=== PATIENT | female | born 1940 | race Caucasian/White ===

== ENCOUNTER 2017-12-17 16:24 | Emergency (ER) | payer MEDICARE, SELFPAY ==
[2017-12-17 16:25] VITALS: BP 131/58; PULSE 97; RESP 18; TEMP 37.1; O2SAT 94; BMI 25.4
--- NOTE | 2017-12-17 16:56 | ED.VISSUMM ---
- ER Visit Summary Date of Service: 12/17/17 Chief Complaint: I am sick History of Present Illness: The patient is a 77 F who states that she is sick. When asked her to explain she states that she feels shaky and has wounds on her right arm. Her left hip is also sore. Her hip was replaced in June. She states it has been sore ever since then. She has chronic wounds on the right arm. Denies any drainage. She states that I am the fifth physician to evaluate these. She feels shaky intermittently. She did not take her temperature at home. She denies any chest pain, shortness of breath. Physical Examination: Vital signs reviewed. HEENT exam unremarkable. Heart is regular rate and rhythm without murmurs. Lungs are clear to auscultation. Abdomen is soft and nontender. Extremities tenderness to the left hip. She does have painful range of motion. Skin exam reveals chronic wounds on the right arm. Not infected. She has 2+ radial pulses. Her hand is warm. Neurologic exam normal. She does shake intermittently but is extinguishable and distractible Test Results: Hemoglobin 10.1, potassium 3.3, glucose 159. Left hip x-ray interpreted by myself reveals no acute findings. Prosthesis is intact and normal Emergency Department Course and Treatment: Patient has a chronic skin wounds on her arm. None are infected. I do not feel any further testing is needed for this. She will continue using triple antibiotic cream. For the hip pain she will continue to use NSAIDs and she will need to follow-up with her PCP Treatment Plan: [] Disposition: Discharge Impression: Left hip pain, chronic skin wounds This note was generated with [employer] dictation software. It may contain incorrect words, spelling, and punctuation that were not noted in review of the chart prior to signing ED Disposition - Plan for ED Patient: Chief Complaint: Other, Pain/Inj Referrals: NOT,DEFINED [NON-STAFF] -
[2017-12-17 17:04] LABS: Absolute Lymphocyte Count 1.82 X10^3/ul (0.83-4.51); Absolute Neutrophil Count 5.2 X10^3/uL (2.0-7.7); Basophil# 0.06 X10^3/uL; Basophil% 0.8 % (0-1); Eosinophil# 0.17 X10^3/uL; Eosinophils% 2.2 % (0-5); Hematocrit 31.7 % (37-47); Hemoglobin 10.1 g/dl (12.0-15.0); Lymphocyte # 1.82 X10^3/ul (4.0); Lymphocyte % 23.3 % (19-41); Mean Corp Hgb Conc 31.9 g/gl (32-36); Mean Corpuscular Hgb 27.4 pg (27.0-32.0); Mean Corpuscular Volume 85.9 fL (81-99); Mean Platelet Vol. 8.8 fl (6.2-12.0); Monocyte# 0.53 X10^3/uL; Monocyte% 6.8 % (0-10); Neutrophil % 66.6 % (47-70); POSITIVE COUNT NO; POSITIVE DIFFERENTIAL NO; POSITIVE MORPHOLOGY NO; Platelet Count 322 K/mm3 (150-450); RBC Distribution Width SD 45.3 fl (35.1-43.9); Red Blood Count 3.69 M/mm3 (4.2-5.4); White Blood Count 7.8 K/mm3 (4.4-11.0)
[2017-12-17 17:14] LABS: Anion Gap 10 (5-15); BUN 11 mg/dL (7-18); BUN/Creat Ratio 10.3 RATIO (10-20); Calcium,Total 8.9 mg/dL (8.5-10.1); Chloride 103 mmol/L (98-107); Creatinine, Serum 1.07 mg/dL (0.55-1.02); EST Glomerular Filtration Rate 53 mL/min (>60); Est Glom Filt Rate - Afr Amer 64 mL/min (>60); Estimated Creatinine Clearance 32.63 ml/min; Glucose 159 mg/dL (74-106); Potassium 3.3 mmol/L (3.5-5.1); Sodium Level 140 mmol/L (136-145)
--- NOTE | 2017-12-17 18:49 | ED.DEP ---
ED Disposition - Plan for ED Patient: Disposition: Home or Assisted Living Chief Complaint: Other, Pain/Inj Instructions: ED Sprain Hip Referrals: NOT,DEFINED [NON-STAFF] -
[2017-12-17 19:33] VITALS: BP 110/80; PULSE 74; RESP 20; O2SAT 98
--- NOTE | 2017-12-17 19:35 | ED.RN ---
PATIENT STATED TO THIS NURSE WHOM JUST CAME ON SHIFT THAT SHE DID NOT COME IN HERE FOR HER HIP SHE CAME IN FOR LESIONS ON HER ARM AND SHOULDER PAIN. I ASKED HER IF SHE WANTED THE DOCTOR TO COME BACK IN AND ADDRESS THESE ISSUES MORE AND SHE SAID NO I AM GOING HOME I WENT OUT AND ASKED DR CRESPO ABOUT THIS AND HE TOLD THIS NURSE THAT HE DID ADDRESS IT AND SHE IS TO PUT OTC ATB CREAM ON THE LESIONS AND F/U WITH HER DOCTOR THIS IS CHRONIC IN NATURE. PATIENT TOLD THIS NURSE THAT SHE DID NOT HAVE MONEY FOR DRSG SUPPLIES. THIS NURSE GAVE HER SOME BACITRACIN SAMPLES TO TAKE HOME AND I OFFERED TO GIVE HER SOME DRSG SUPPLIES AND SHE REFUSED. PATIENT DISCHARGED WITH PAPERWORK AND A TAXI WAS CALLED FOR HER.
== END 2017-12-17 19:39 | disposition home or self-care (01) ==
PROVIDERS: Emergency Provider Emergency Medicine
DX: M25.552 Pain in left hip (principal); S41.101A Unspecified open wound of right upper arm, initial encounter; R25.8 Other abnormal involuntary movements; X58.XXXA Exposure to other specified factors, initial encounter; Y93.9 Activity, unspecified; Y92.9 Unspecified place or not applicable
CPT/HCPCS: 73502; 80048; 85025; 99282

== ENCOUNTER 2018-02-05 05:54 | Observation (INO) | payer MEDICARE, SELFPAY ==
[2018-02-05 05:56] VITALS: BP 86/58; PULSE 91; RESP 16; TEMP 37.2; O2SAT 94; BMI 26.7
--- NOTE | 2018-02-05 06:02 | EKG12_ITS ---
Test Reason : FALL Blood Pressure : / mmHG Vent. Rate : 081 BPM Atrial Rate : 081 BPM P-R Int : 174 ms QRS Dur : 080 ms QT Int : 422 ms P-R-T Axes : 047 018 031 degrees QTc Int : 490 ms Poor data quality, interpretation may be adversely affected Normal sinus rhythm Possible Inferior infarct , age undetermined Nonspecific ST and T wave abnormality Abnormal ECG Confirmed by WEST VANCE, KEVIN ([id number]), magazine editor SUYAPA SHIELDS ([id number] on 02/08/2018 1:01:50 PM Referred By: GORDON Confirmed By:KEVIN DODSON MD
--- NOTE | 2018-02-05 06:19 | CT_ITS ---
STUDY: CT CERVICAL SPINE WITHOUT CONTRAST REASON FOR EXAM: Female, 77 years old. History of fall. RADIATION DOSAGE (If Supplied By Facility): CTDIvol = ( 18.13 ) mGy, DLP = ( 295.29 ) mGycm TECHNIQUE: High resolution transaxial imaging was performed without contrast material. Sagittal and coronal images were reconstructed. Individualized dose optimization techniques were used for this CT. COMPARISON: None FINDINGS: Normal craniovertebral junction. There are degenerative changes of the anterior atlantoaxial articulation. Normal odontoid process. Normal cervical lordosis. Normal vertebral bodies and posterior osseous elements. C2-3: Marked degree of disc space narrowing. Anterior spondylosis. Uncovertebral arthrosis and facet joint osteoarthropathy with hypertrophy worse on the left side. Bilateral neural foraminal stenosis. C3-4: Minimal anterior listhesis of C3 on C4 most likely secondary to the facet joint osteoarthritis and hypertrophy. Uncovertebral arthrosis. Mild bilateral neural foraminal stenosis. C4-5: Marked degree of disc space narrowing. Uncovertebral arthrosis. Bilateral neural foraminal stenosis worse on the left side. C5-6: Marked degree of disc space narrowing. Uncovertebral arthrosis. No significant stenosis is seen. C6-7: Marked degree of the space narrowing. Spondylosis. No significant stenosis is seen. Increased markings are seen at the lung apices suggestive of scarring. CT/Spine Cervical without Contras IMPRESSION: Multilevel degenerative changes, as described above. Electronically Signed: Ferny Beckett MD at 8:17 EDT Tel [phone], Service support ,
--- NOTE | 2018-02-05 06:19 | CT_ITS ---
STUDY: CT BRAIN WITHOUT CONTRAST REASON FOR EXAM: Female, 77 years old. History of fall. RADIATION DOSAGE (If Supplied By Facility): CTDIvol = ( 44.99 ) mGy, DLP = ( 745.49 ) mGycm TECHNIQUE: Transaxial CT imaging of the brain was performed without administration of intravenous contrast material. Individualized dose optimization techniques were used for this CT. COMPARISON: None. FINDINGS: Normal soft tissue structures. Normal calvarium. There is mild cerebral atrophy with widening of the extra-axial spaces and ventricular dilatation. Normal white matter tracts of the cerebral hemispheres. Normal basal ganglia and thalami. Normal brainstem. Normal cerebellum. There is no intracranial hemorrhage. There are no findings of an acute ischemic infarction. Normal visualized paranasal sinuses. CT/Brain/Head without Contrast IMPRESSION: Chronic involutional changes of the brain. Electronically Signed: Ferny Beckett MD at 8:12 EDT Tel [phone], Service support ,
--- NOTE | 2018-02-05 06:22 | ED.DCSUM_ITS ---
- ER Visit Summary Date of Service: 02/05/18 Chief Complaint: Fall History of Present Illness: The patient is a 77 F presenting after fall. Patient lives alone. She states she has been frequently falling at home. She states she fell 4 times yesterday and 2 times today. She states she does hit her head but has not passed out. She complains of right shoulder pain. She uses a walker at home. She has history of previous left hip replacement and right shoulder surgery. She does not recall what causes her to fall. Physical Examination: Blood pressure 86/58, temperature 99, heart rate 91, respiratory rate 16, pulse ox 95% on room air, Alert no acute distress. HEENT exam is unremarkable. Neck is mild diffuse tenderness with no step-off Lungs are clear and equal bilaterally. Heart is regular rate and rhythm. Abdomen is soft nontender nondistended. No guarding or rebound Extremities right shoulder anterior tenderness with active full range of motion Skin is warm and dry. Multiple excoriated lesions No focal neurologic deficit. Remainder of exam is unremarkable. Emergency Department Course and Treatment: Patient was given IV fluids. Repeat BP 110/53. EKG is sinus rate of 81 with no acute ischemic changes. CBC is normal except hemoglobin 10.9. Chemistries normal except for potassium 3.4, glucose 126, creatinine 1.24. Troponin is negative. Lactic acid normal. Urinalysis shows 50-100 white cells, 5-10 red blood cells. Urine culture is sent. She was given Rocephin IV. Chest x-ray shows vascular congestion. Right shoulder x-ray shows degenerative changes, pelvis x-ray shows no acute process. CT head and neck show chronic changes. Due to her frequent falling and UTI will discuss with the hospitalist for admission. Disposition: Admission Impression: Frequent falls, UTI This note was generated with [employer] dictation software. It may contain incorrect words, spelling, and punctuation that were not noted in review of the chart prior to signing ED Disposition - Plan for ED Patient: Chief Complaint: Fall Referrals: Roland Hall MD [Primary Care Provider] -
[2018-02-05] MEDS: 0.9% Normal Saline 1,000 ML 1000 ML IV (06:42)
[2018-02-05 07:12] LABS: Absolute Lymphocyte Count 2.79 X10^3/ul (0.83-4.51); Absolute Neutrophil Count 5.9 X10^3/uL (2.0-7.7); Basophil# 0.05 X10^3/uL; Basophil% 0.5 % (0-1); Eosinophil# 0.88 X10^3/uL; Eosinophils% 8.2 % (0-5); Hematocrit 34.6 % (37-47); Hemoglobin 10.9 g/dl (12.0-15.0); Lymphocyte # 2.79 X10^3/ul (4.0); Lymphocyte % 26.1 % (19-41); Mean Corp Hgb Conc 31.5 g/gl (32-36); Mean Corpuscular Hgb 26.7 pg (27.0-32.0); Mean Corpuscular Volume 84.8 fL (81-99); Mean Platelet Vol. 8.7 fl (6.2-12.0); Monocyte# 1.08 X10^3/uL; Monocyte% 10.1 % (0-10); Neutrophil # 5.89 X10^3/uL (2.7-7.7); Neutrophil % 54.9 % (47-70); Platelet Count 374 K/mm3 (150-450); RBC Distribution Width CV 15.9 % (11.6-14.6); RBC Distribution Width SD 49.2 fl (35.1-43.9); Red Blood Count 4.08 M/mm3 (4.2-5.4); White Blood Count 10.7 K/mm3 (4.4-11.0)
[2018-02-05 07:18] VITALS: BP 110/53; PULSE 66; RESP 14; O2SAT 98
[2018-02-05 07:19] LABS: POSITIVE COUNT NO; POSITIVE DIFFERENTIAL NO; POSITIVE MORPHOLOGY NO
[2018-02-05 07:20] LABS: Mucous, Urine 0 SEEN /hpf (<or=2+)
[2018-02-05 07:23] LABS: Color, Urine Yellow (Yellow); Glucose, Dipstick Normal (Normal); Ketone-Dipstick 5 mg/dl (Negative); Leukocyte Esterase-Dipstick 500 /ul (Negative); Nitrite-Dipstick Positive (Negative); Occult Blood-Urine 150 /ul (Negative); Protein-Dipstick 100 mg/dl (Negative); Specific Gravity, Urine 1.025 (1.002-1.030); Urine Clarity Turbid (Clear); Urine Urobilinogen 1 mg/dl (Normal)
[2018-02-05 07:24] LABS: Anion Gap 11 (5-15); BUN 17 mg/dL (7-18); BUN/Creat Ratio 13.7 RATIO (10-20); Calcium,Total 8.8 mg/dL (8.5-10.1); Chloride 101 mmol/L (98-107); Creatinine, Serum 1.24 mg/dL (0.55-1.02); EST Glomerular Filtration Rate 45 mL/min (>60); Est Glom Filt Rate - Afr Amer 54 mL/min (>60); Estimated Creatinine Clearance 29.58 ml/min; Glucose 126 mg/dL (74-106); Potassium 3.4 mmol/L (3.5-5.1); Sodium Level 138 mmol/L (136-145)
--- NOTE | 2018-02-05 07:25 | RAD_ITS ---
STUDY: X-RAY CHEST REASON FOR EXAM: Female, 77 years old. Trauma. TECHNIQUE: Single AP portable view of the chest. COMPARISON: Comparison is made with prior study dated July 01, 2015. FINDINGS: EKG electrodes are seen. Mild degree of vascular congestion. There is no demonstrated pleural abnormality. Normal size heart. Normal mediastinum and yakov. Normal visualized pulmonary arteries. There is atherosclerotic calcification of the aortic arch with tortuosity. Stable S-shaped scoliosis of the thoracic lumbar spine. Multiple healed right rib fractures. There is absence of the medial one half of the right clavicle. There is no demonstrated abnormality of the visualized soft tissue structures of the upper abdomen. RAD/Chest 1 View IMPRESSION: Vascular congestion. Electronically Signed: Ferny Beckett MD at 8:25 EDT Tel [phone], Service support ,
[2018-02-05 07:27] LABS: Lactic Acid 1.6 mmol/L (0.4-2.0)
--- NOTE | 2018-02-05 07:30 | RAD_ITS ---
STUDY: X-RAY - PELVIS REASON FOR EXAM: Female, 77 years old. Trauma. TECHNIQUE: One view of the pelvis was obtained. COMPARISON: None. FINDINGS: There is a non-specific bowel gas pattern. Normal visualized soft tissue structures. Normal bilateral iliac wings, sacroiliac joints and visualized sacrum. Normal visualized bilateral superior and inferior pubic rami. Normal pubic symphysis. Normal ischial tuberosities. Normal visualized right femoral head. Normal right acetabulum. Normal right hip joint. The patient is status post left total hip replacement. RAD/Pelvis 1 or 2 Views IMPRESSION: Status post left total hip replacement. No acute abnormality is seen. Electronically Signed: Ferny Beckett MD at 8:21 EDT Tel [phone], Service support ,
[2018-02-05 07:33] LABS: Urine Bilirubin Dipstick 1 mg/dL (Negative); White Blood Cells 50-100 SEEN /hpf (0-5)
[2018-02-05 07:34] LABS: Bacteria 2+ /hpf (None Seen); Red Blood Cells-Urine 5-10 SEEN /hpf (0-5); Squamous Epithelial Cells - UA 0-5 SEEN /hpf (5-10)
--- NOTE | 2018-02-05 07:35 | RAD_ITS ---
STUDY: X-RAY - RIGHT SHOULDER REASON FOR EXAM: Female, 77 years old. History of fall. TECHNIQUE: 4 view(s) of the shoulder. COMPARISON: None. FINDINGS: There is moderate degenerative arthrosis of the glenohumeral articulation. Normal acromioclavicular joint. Normal acromion. There has been resection of the medial half of the right clavicle. Normal humeral head and visualized proximal humerus. The soft tissue structures are unremarkable. Healed right rib fractures. RAD/Shoulder min 2 Views IMPRESSION: Degenerative changes. No fracture or dislocation is seen. Prior resection of the medial half of the right clavicle. Electronically Signed: Ferny Beckett MD at 8:20 EDT Tel [phone], Service support ,
[2018-02-05 09:00] VITALS: BP 98/57; PULSE 63; RESP 14; O2SAT 97
[2018-02-05] MEDS: Ceftriaxone 1 GM/50 ML BAG IV (09:00)
[2018-02-05 09:29] VITALS: BP 115/61; PULSE 70; RESP 18; O2SAT 98
[2018-02-05 10:26] VITALS: BMI 26.7
[2018-02-05 10:30] VITALS: BP 122/54; PULSE 66; RESP 16; TEMP 36.4; O2SAT 100
[2018-02-05 10:33] VITALS: BMI 26.7
[2018-02-05] MEDS: 0.9% Normal Saline 1,000 ML 125 ML IV (12:16)
[2018-02-05] MEDS: Heparin Injection (Vial) 5,000 UNIT/ML VIAL 5000 UNIT SC (12:18)
[2018-02-05] MEDS: Cefazolin 2 GM in 0.9% Normal Saline 100 ML IV (14:23)
--- NOTE | 2018-02-05 15:12 | HP.PCM_ITS ---
Addendum entered and electronically signed by SAGRARIO Templeton 02/05/18 15:28: Code Visit Addendum: hold sedatives for now to make sure blood pressure recovers, add back in if BP improved and patient develops anxiety. Original Note: <Reed Hardy - Last Filed: 02/05/18 15:27> Problem List (1) UTI (urinary tract infection) Status: Acute (2) Debility Status: Chronic (3) COPD (chronic obstructive pulmonary disease) Status: Chronic (4) Anxiety Status: Chronic History of Present Illness Date of Admission: 02/05/18 Chief Complaint: fall The patient is a 77 year old F with a Pmhx of anxiety, COPD, and osteoarthritis who presents to the ER with c/o fall. The patient lives alone and states that she is falling at home, has BL arm and shoulder pain, but also pain all over her body, and is very weak. She appears to have a UTI with + UA and does admit to urinary symptoms. The patient is not being forthcoming with her history, and has concerning behavior including answering questions different when asked multiple times, and stating that she cannot get up even though the aid had her get up with no problem. When the aid revealed this she became very angry, yelling at the aid, and then getting up on her own without difficulty. BP was low in the ER however this has improved with IV fluids. She denies fever or chills. No dizziness or LH. [] Past Medical History Past Medical History (Chronic Problems): Chronic Problems Debility (Chronic) COPD (chronic obstructive pulmonary disease) (Chronic) Anxiety (Chronic) Depression (Chronic) Degenerative joint disease (Chronic) COLD (chronic obstructive lung disease) (Chronic) Allergies acetaminophen [From Vicodin] Allergy (Verified 02/05/18 05:55) Unknown aspirin Allergy (Verified 02/05/18 05:55) Unknown gabapentin Allergy (Verified 02/05/18 06:29) Itching hydrocodone bitartrate [From Vicodin] Allergy (Verified 02/05/18 05:55) Unknown Sulfa (Sulfonamide Antibiotics) Allergy (Verified 02/05/18 05:55) Unknown fexofenadine [From Anna] Adverse Reaction (Verified 02/05/18 06:29) Itching sertraline [From Zoloft] Adverse Reaction (Verified 02/05/18 06:29) Diarrhea Home Medications: Ambulatory Orders Medication Instructions Recorded ALPRAZolam [Xanax] 0.5 mg PO DAILY 02/05/18 Albuterol Inhaler [Ventolin Hfa 1 - 2 puff INHALATION Q6H PRN PRN 02/05/18 (SP)] Budesonide/Formoterol 160/4.5 2 puff INHALATION BID 02/05/18 [Symbicort 160/4.5 Mcg Inhaler (SP)] Cholecalciferol (Vitamin D3) 50,000 unit PO QWEEK 02/05/18 [Vitamin D] Fluoxetine HCl 40 mg PO DAILY 02/05/18 Fluticasone 0.05% [Flonase Nasal 2 spray NASAL DAILY 02/05/18 [place]] Mupirocin [Bactroban] 1 applic TOPICAL TID 02/05/18 Ondansetron HCl [Zofran] 4 mg PO Q8H PRN 02/05/18 Oxybutynin Chloride [Ditropan Xl] 10 mg PO DAILY 02/05/18 Oxycodone HCl [Roxicodone] 15 mg PO 4X/DAY 02/05/18 Pantoprazole Sodium [Protonix] 20 mg PO DAILY 02/05/18 Temazepam [Restoril] 15 mg PO QHS 02/05/18 Tizanidine HCl [Zanaflex] 2 mg PO BID PRN 02/05/18 Zafirlukast [Accolate] 20 mg PO BID 02/05/18 hydrOXYzine pamoate capsule 50 mg PO TID PRN PRN 02/05/18 [Vistaril] Surgical History: herniorrhaphy Psychiatric History: Anxiety 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 Lives: Alone Smoking Status: Former smoker Tobacco Use: Non-smoker Alcohol: None Drugs: None - *Family History Paternal History Items: Cancer - throat Review of Systems Constitutional: Denies: Chills, Fever, Weight Change HEENT: Denies: Head Aches, Sinus Congestion, Sinus Drainage Cardiovascular: Denies: Chest Pain, Palpitations Respiratory: Denies: Cough, Shortness of breath at rest, Sputum production Gastrointestinal: Denies: Abdominal Pain, Nausea, Vomiting Genitourinary: Denies: Dysuria Musculoskeletal: Denies: Joint Pain, Joint Tenderness Skin: Denies: Rash, Wounds Neurological: Denies: Numbness, Tingling, Focal weakness Psychiatric: Denies: Anxiety, Depression, Homicidal Ideations, Suicidal Ideations Hematologic/ Lymphatic: Denies: Easy Bruising, Easy Bleeding VTE Information - Inpt Only VTE Present on Admission: No VTE Mechan Device Prophylaxis: None VTE Pharm Prophylaxis ordered?: Yes - Physical Exam General: Alert, Oriented x3, Cooperative, - - frail HEENT: Atraumatic, PERRLA, EOMI, Normocephalic Neck: Supple, No JVD, Negative Carotid Bruits Lungs: Rales - BL bases Cardiovascular: Regular rate, No murmurs Abdomen: Bowel Sounds Present, Soft, Tender - suprapubic, - - + BL CVA tenderness Extremities: No edema, Capillary Refill Less than 3 Seconds Skin: No rashes, No breakdown, - - chronic wounds on extremities from falls Musculoskeletal: No Tenderness to Palpation of Joints or Extremities Neurological: Cranial nerves II-XII grossly intact Psych/Mental Status: - - angry, Alert and oriented to time, place, person, mood and affect Vital Signs Temp Pulse Resp BP Pulse Ox 97.6 F L 66 16 122/54 H 100 02/05/18 10:30 02/05/18 10:30 02/05/18 10:30 02/05/18 10:30 02/05/18 10:30 Oxygen Delivery Method Room Air Weight: 141 lb 8.588 oz Body Mass Index (BMI) 26.7 Intake and Output for Last 24 Hours 02/03/18 02/04/18 02/05/18 23:59 23:59 23:59 Intake Total 125 / 125 Balance 125 / 125 Laboratory Tests Past 24 Hrs 02/05/18 02/05/18 02/05/18 06:40 06:40 06:40 WBC 10.7 RBC 4.08 L Hgb 10.9 L Hct 34.6 L MCV 84.8 MCH 26.7 L MCHC 31.5 L RDW 15.9 H RDW Differential 49.2 H Plt Count 374 MPV 8.7 Immature Gran % (Auto) 0.200 Neut % (Auto) 54.9 Lymph % (Auto) 26.1 [place] % (Auto) 10.1 H Eos % (Auto) 8.2 H Baso % (Auto) 0.5 Absolute Neuts (auto) 5.9 Absolute Lymphs (auto) 2.79 Total Counted Not Reportable Sodium 138 Potassium 3.4 L Chloride 101 Carbon Dioxide 26.0 Anion Gap 11 BUN 17 Creatinine 1.24 H Estim Creat Clear Calc 29.58 Est GFR (MDRD) Af Amer 54 L Est GFR (MDRD) Non-Af 45 L BUN/Creatinine Ratio 13.7 Glucose 126 H Lactic Acid 1.6 Calcium 8.8 Troponin I < 0.015 Urine Color Urine Clarity Urine pH Ur Specific [place] Urine Protein Urine Glucose (UA) Urine Ketones Urine Occult Blood Urine Nitrite Urine Bilirubin Urine Urobilinogen Ur Leukocyte Esterase Urine RBC Urine WBC Ur Squamous Epith Cells Urine Bacteria Urine Mucus 02/05/18 07:15 WBC RBC Hgb Hct MCV MCH MCHC RDW RDW Differential Plt Count MPV Immature Gran % (Auto) Neut % (Auto) Lymph % (Auto) [place] % (Auto) Eos % (Auto) Baso % (Auto) Absolute Neuts (auto) Absolute Lymphs (auto) Total Counted Sodium Potassium Chloride Carbon Dioxide Anion Gap BUN Creatinine Estim Creat Clear Calc Est GFR (MDRD) Af Amer Est GFR (MDRD) Non-Af BUN/Creatinine Ratio Glucose Lactic Acid Calcium Troponin I Urine Color Yellow Urine Clarity Turbid Urine pH 5.0 Ur Specific [place] 1.025 Urine Protein 100 H Urine Glucose (UA) Normal Urine Ketones 5 H Urine Occult Blood 150 H Urine Nitrite Positive H Urine Bilirubin 1 H Urine Urobilinogen 1 H Ur Leukocyte Esterase 500 H Urine RBC 5-10 SEEN Urine WBC 50-100 SEEN Ur Squamous Epith Cells 0-5 SEEN Urine Bacteria 2+ Urine Mucus 0 SEEN Assessment/Plan All Active Problems UTI (urinary tract infection) (Acute) Itching (Acute) 1. Acute sepsis 2/2 Acute UTI - + UA, dysuria, and suprapubic tenderness. concerning for pyelo, + BL CVA tenderness. Continue Ancef, check culture, check renal US for hydronephrosis. LA negative. no leukocytosis, no fever. 2. Mildly elevated creatinine - suspect dehydration. Continue IV fluids. Replete K+. 3. Hypotension - resolved with IV fluids. 4. Mild anemia, normocytic - trend. 5. Anxiety - suspect more underlying psych issues like borderline given her behavior. She only admits to anxiety. 6. COPD - CXR with congestion. some rales on exam. No SOB. 7. Debility / Falls - PTOT. Xrays without acute fractures. all over pain worse in shoulders. Hx osteoarthritis. 8. Osteoarthritis - chronic pain syndrome. Continue home pain regimen. DVT ppx: heparin DC planning: PTOT. Lives alone. Falling. This patient was seen by Reed Hardy PA-C under the supervision of Doctor Marques. <Shlomo Mohan F - Last Filed: 02/05/18 17:17> History of Present Illness The patient is a 77 year old F [] Past Medical History Allergies acetaminophen [From Vicodin] Allergy (Verified 02/05/18 05:55) Unknown aspirin Allergy (Verified 02/05/18 05:55) Unknown gabapentin Allergy (Verified 02/05/18 06:29) Itching hydrocodone bitartrate [From Vicodin] Allergy (Verified 02/05/18 05:55) Unknown Sulfa (Sulfonamide Antibiotics) Allergy (Verified 02/05/18 05:55) Unknown fexofenadine [From Anna] Adverse Reaction (Verified 02/05/18 06:29) Itching sertraline [From Zoloft] Adverse Reaction (Verified 02/05/18 06:29) Diarrhea - Physical Exam Vital Signs Temp Pulse Resp BP Pulse Ox 97.6 F L 66 16 122/54 H 100 02/05/18 10:30 02/05/18 10:30 02/05/18 10:30 02/05/18 10:30 02/05/18 10:30 Oxygen Delivery Method Room Air Weight: 141 lb 8.588 oz Body Mass Index (BMI) 26.7 Intake and Output for Last 24 Hours 02/03/18 02/04/18 02/05/18 23:59 23:59 23:59 Intake Total 125 / 125 Balance 125 / 125 Laboratory Tests Past 24 Hrs 02/05/18 02/05/18 02/05/18 06:40 06:40 06:40 WBC 10.7 RBC 4.08 L Hgb 10.9 L Hct 34.6 L MCV 84.8 MCH 26.7 L MCHC 31.5 L RDW 15.9 H RDW Differential 49.2 H Plt Count 374 MPV 8.7 Immature Gran % (Auto) 0.200 Neut % (Auto) 54.9 Lymph % (Auto) 26.1 [place] % (Auto) 10.1 H Eos % (Auto) 8.2 H Baso % (Auto) 0.5 Absolute Neuts (auto) 5.9 Absolute Lymphs (auto) 2.79 Total Counted Not Reportable Sodium 138 Potassium 3.4 L Chloride 101 Carbon Dioxide 26.0 Anion Gap 11 BUN 17 Creatinine 1.24 H Estim Creat Clear Calc 29.58 Est GFR (MDRD) Af Amer 54 L Est GFR (MDRD) Non-Af 45 L BUN/Creatinine Ratio 13.7 Glucose 126 H Lactic Acid 1.6 Calcium 8.8 Troponin I < 0.015 Urine Color Urine Clarity Urine pH Ur Specific [place] Urine Protein Urine Glucose (UA) Urine Ketones Urine Occult Blood Urine Nitrite Urine Bilirubin Urine Urobilinogen Ur Leukocyte Esterase Urine RBC Urine WBC Ur Squamous Epith Cells Urine Bacteria Urine Mucus 02/05/18 07:15 WBC RBC Hgb Hct MCV MCH MCHC RDW RDW Differential Plt Count MPV Immature Gran % (Auto) Neut % (Auto) Lymph % (Auto) [place] % (Auto) Eos % (Auto) Baso % (Auto) Absolute Neuts (auto) Absolute Lymphs (auto) Total Counted Sodium Potassium Chloride Carbon Dioxide Anion Gap BUN Creatinine Estim Creat Clear Calc Est GFR (MDRD) Af Amer Est GFR (MDRD) Non-Af BUN/Creatinine Ratio Glucose Lactic Acid Calcium Troponin I Urine Color Yellow Urine Clarity Turbid Urine pH 5.0 Ur Specific [place] 1.025 Urine Protein 100 H Urine Glucose (UA) Normal Urine Ketones 5 H Urine Occult Blood 150 H Urine Nitrite Positive H Urine Bilirubin 1 H Urine Urobilinogen 1 H Ur Leukocyte Esterase 500 H Urine RBC 5-10 SEEN Urine WBC 50-100 SEEN Ur Squamous Epith Cells 0-5 SEEN Urine Bacteria 2+ Urine Mucus 0 SEEN Code Visit Addendum: Dr. Mohan I personally examined the patient and reviewed the chart. I agree with the above. 77-year-old female with a past medical history consisting of anxiety, COPD, osteoarthritis, and depression presents to the ER with multiple falls over the last couple of days and was found to have a UTI in the ER. She was given a dose of Rocephin in the ER and a dose of Ancef on the floor. During my exam she understood where she was in what was going on however maintain that she wanted to go home. I explained her that she had a urinary tract infection and that she need to continue with antibiotics at this time, however, she said that she has been having a UTI for the last 2 years and nobody does anything about it so why should she stay here. At the moment she is willing to stay to have IV antibiotics and to continue with her pain meds for her shoulder pain after her fall. Inpatient E&M: [id number] In Hosp L3
--- NOTE | 2018-02-05 16:00 | PCA ---
pt bed exit alarmed, aides x2 entered room, pt assisted to bathroom then tried to assist pt back to bed, but she was demanding that she was missing such items, radio, vape, cellphone, non of these items were observed upon admission. pt demanding to get her doctor in the room because she has been in here for 2 days with pain and nothing has been done about it, pt admitted on 02/05/18. pt aware of this but swears we're lying to her, pt becoming more agitated stating she is going to leave demand us two aides to get out of her way so she could get dressed, aide stated she could not get dressed until nurse in to dc her iv. nurse present in room, then took care of situation with rn discharge.
--- NOTE | 2018-02-05 16:47 | DCINST_ITS ---
You will use the following diet at home:: Other - AMA Discharge Activity: - - left AMA Allergies/Adverse Reactions: Allergies acetaminophen [From Vicodin] Allergy (Verified 02/05/18 05:55) Unknown aspirin Allergy (Verified 02/05/18 05:55) Unknown gabapentin Allergy (Verified 02/05/18 06:29) Itching hydrocodone bitartrate [From Vicodin] Allergy (Verified 02/05/18 05:55) Unknown Sulfa (Sulfonamide Antibiotics) Allergy (Verified 02/05/18 05:55) Unknown fexofenadine [From Anna] Adverse Reaction (Verified 02/05/18 06:29) Itching sertraline [From Zoloft] Adverse Reaction (Verified 02/05/18 06:29) Diarrhea Medications to take at Discharge ALPRAZolam [Xanax] 0.5 mg PO DAILY 02/05/18 Albuterol Inhaler [Ventolin Hfa (SP)] 1 - 2 puff INHALATION Q6H PRN PRN 02/05/18 Budesonide/Formoterol 160/4.5 [Symbicort 160/4.5 Mcg Inhaler (SP)] 2 puff INHALATION BID 02/05/18 Cholecalciferol (Vitamin D3) [Vitamin D] 50,000 unit PO QWEEK 02/05/18 Fluoxetine HCl 40 mg PO DAILY 02/05/18 Fluticasone 0.05% [Flonase Nasal [place]] 2 spray NASAL DAILY 02/05/18 Mupirocin [Bactroban] 1 applic TOPICAL TID 02/05/18 Ondansetron HCl [Zofran] 4 mg PO Q8H PRN 02/05/18 Oxybutynin Chloride [Ditropan Xl] 10 mg PO DAILY 02/05/18 Oxycodone HCl [Roxicodone] 15 mg PO 4X/DAY 02/05/18 Pantoprazole Sodium [Protonix] 20 mg PO DAILY 02/05/18 Temazepam [Restoril] 15 mg PO QHS 02/05/18 Tizanidine HCl [Zanaflex] 2 mg PO BID PRN 02/05/18 Zafirlukast [Accolate] 20 mg PO BID 02/05/18 hydrOXYzine pamoate capsule [Vistaril] 50 mg PO TID PRN PRN 02/05/18 Primary Care Physician: Roland Hall MD [STAFF PHYSICIAN] - Test Results: Test results from this visit will be discussed in further detail at your follow- up appointment, if applicable.
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
--- NOTE | 2018-02-05 19:00 | NURSING ---
PT RESTING QUIETLY IN BED W/EYES CLOSED.
== END 2018-02-05 16:34 | disposition left against medical advice (07) ==
LOC: ED 09:21 → MS2 09:51
PROVIDERS: Admitting Provider Family Medicine; Emergency Provider Emergency Medicine; Family Provider Family Medicine; PCP Family Medicine; Visit Provider Family Medicine
DX: A41.9 Sepsis, unspecified organism (principal); N39.0 Urinary tract infection, site not specified; J44.9 Chronic obstructive pulmonary disease, unspecified; M25.511 Pain in right shoulder; R29.6 Repeated falls; F41.9 Anxiety disorder, unspecified; M19.90 Unspecified osteoarthritis, unspecified site; F32.9 Major depressive disorder, single episode, unspecified; Z79.899 Other long term (current) drug therapy; Z79.51 Long term (current) use of inhaled steroids; Z79.891 Long term (current) use of opiate analgesic; Z87.891 Personal history of nicotine dependence; D64.9 Anemia, unspecified; G89.4 Chronic pain syndrome; I95.9 Hypotension, unspecified; E87.6 Hypokalemia
CPT/HCPCS: 70450; 71045; 72125; 72170; 73030; 80048; 81001; 83605; 84484; 85025; 87077; 87086; 87088; 87186; 93005; 96361; 96365; 96367; 96372; 97166; 97802; 99218; 99285; J7030; J7040; J7050; A4216; G0378; G8987; G8988

== ENCOUNTER 2018-02-07 08:13 | Observation (INO) | payer MEDICARE, SELFPAY ==
[2018-02-07 08:14] VITALS: BP 112/66; PULSE 81; RESP 15; TEMP 37.1; O2SAT 96; BMI 25.2
--- NOTE | 2018-02-07 08:30 | RAD_ITS ---
STUDY: X-RAY CHEST REASON FOR EXAM: Female, 77 years old. Bilateral upper extremity pain. Asthma and emphysema. TECHNIQUE: Single AP portable view of the chest. COMPARISON: Comparison is made with prior study dated February 05, 2018. FINDINGS: Hyperinflation. Minimal degree of increased linear markings at the right lung base suggests a mild basilar atelectasis. The vascular congestion has resolved. There is no demonstrated pleural abnormality. Normal size heart. Normal mediastinum and yakov. Normal visualized pulmonary arteries. There is atherosclerotic calcification of the aortic arch with tortuosity. There are diffuse degenerative changes of the visualized thoracic spine. Mild dextroscoliosis. There is degenerative osteoarthritis of the bilateral shoulders. There is no demonstrated abnormality of the visualized soft tissue structures of the upper abdomen. RAD/Chest 1 View (Portable) IMPRESSION: Hyperinflation. Mild increased markings at the right lung base suggestive of linear atelectasis. Electronically Signed: Ferny Beckett MD at 9:05 EDT Tel [phone], Service support ,
--- NOTE | 2018-02-07 08:31 | RAD_ITS ---
STUDY: X-RAY - PELVIS REASON FOR EXAM: Female, 77 years old. Left hip pain. TECHNIQUE: One view of the pelvis was obtained. COMPARISON: Comparison is made with prior study dated February 05, 2018. FINDINGS: There is a non-specific bowel gas pattern. Normal visualized soft tissue structures. Normal bilateral iliac wings, sacroiliac joints and visualized sacrum. Normal visualized bilateral superior and inferior pubic rami. Normal pubic symphysis. Normal ischial tuberosities. Normal visualized right femoral head. Normal right acetabulum. There is mild articular joint space narrowing of the right hip. The patient is status post left hip replacement. There is good alignment. No acute abnormality is seen. RAD/Pelvis 1 or 2 Views IMPRESSION: Status post left total hip replacement. Electronically Signed: Ferny Beckett MD at 9:06 EDT Tel [phone], Service support ,
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
[2018-02-07 08:55] LABS: Absolute Lymphocyte Count 1.37 X10^3/ul (0.83-4.51); Absolute Neutrophil Count 13.9 X10^3/uL (2.0-7.7); Basophil# 0.04 X10^3/uL; Basophil% 0.2 % (0-1); Differential Indicated SCAN CRITERIA MET; Eosinophil# 0.01 X10^3/uL; Eosinophils% 0.1 % (0-5); Hematocrit 34.4 % (37-47); Hemoglobin 11.1 g/dl (12.0-15.0); Lymphocyte # 1.37 X10^3/ul (4.0); Mean Corp Hgb Conc 32.3 g/gl (32-36); Mean Corpuscular Hgb 26.9 pg (27.0-32.0); Mean Corpuscular Volume 83.5 fL (81-99); Mean Platelet Vol. 8.4 fl (6.2-12.0); Monocyte# 1.85 X10^3/uL; Monocyte% 10.7 % (0-10); Neutrophil % 80.7 % (47-70); POSITIVE COUNT NO; POSITIVE DIFFERENTIAL YES; POSITIVE MORPHOLOGY NO; Platelet Count 347 K/mm3 (150-450); RBC Distribution Width CV 15.6 % (11.6-14.6); RBC Distribution Width SD 47.9 fl (35.1-43.9); Red Blood Count 4.12 M/mm3 (4.2-5.4); White Blood Count 17.2 K/mm3 (4.4-11.0)
[2018-02-07 09:01] LABS: Bacteria 0 SEEN /hpf (None Seen); Mucous, Urine 0 SEEN /hpf (<or=2+)
[2018-02-07 09:03] LABS: Color, Urine Yellow (Yellow); Glucose, Dipstick Normal (Normal); Leukocyte Esterase-Dipstick 500 /ul (Negative); Nitrite-Dipstick Negative (Negative); Occult Blood-Urine 10 /ul (Negative); Protein-Dipstick 30 mg/dl (Negative); Specific Gravity, Urine 1.025 (1.002-1.030); Urine Bilirubin Dipstick Negative (Negative); Urine Clarity Sl. Cloudy (Clear); Urine Urobilinogen Normal (Normal)
[2018-02-07 09:05] LABS: Ketone-Dipstick 150 mg/dl (Negative)
[2018-02-07 09:09] LABS: Red Blood Cells-Urine 0-5 SEEN /hpf (0-5); Squamous Epithelial Cells - UA 0-5 SEEN /hpf (5-10); White Blood Cells 25-50 SEEN /hpf (0-5)
[2018-02-07 09:09] LABS: Differential Comment SCANNED
[2018-02-07 09:10] LABS: ALB/GLOB Ratio 0.8 RATIO (0.9-2.4); AST(SGOT) 7 U/L (15-37); Alanine Aminotransfer ALT/SGPT 13 U/L (13-56); Albumin, Serum 3.3 g/dL (3.2-5.0); Alkaline Phosphatase 91 U/L (45-117); Anion Gap 10 (5-15); BUN 12 mg/dL (7-18); BUN/Creat Ratio 16.8 RATIO (10-20); Calcium,Total 9.3 mg/dL (8.5-10.1); Chloride 98 mmol/L (98-107); Creatinine, Serum 0.71 mg/dL (0.55-1.02); EST Glomerular Filtration Rate 85 mL/min (>60); Est Glom Filt Rate - Afr Amer 102 mL/min (>60); Estimated Creatinine Clearance 36.68 ml/min; Globulin 4.3 g/dL (2.2-4.2); Glucose 126 mg/dL (74-106); Protein, Total 7.6 g/dL (6.4-8.2); Sodium Level 132 mmol/L (136-145)
--- NOTE | 2018-02-07 09:15 | CT_ITS ---
STUDY: CT CHEST WITH CONTRAST REASON FOR EXAM: Female, 77 years old. Upper extremity pain. Back pain. RADIATION DOSAGE (If Supplied By Facility): CTDIvol = ( 14.69 ) mGy, DLP = ( 1545.24 ) mGycm TECHNIQUE: Transaxial imaging was performed following intravenous administration of 100 ml of Isovue 300 contrast material. Multiplanar coronal and sagittal images were reformatted. Individualized dose optimization techniques were used for this CT. COMPARISON: None. FINDINGS: Tiny right pleural effusion with right basilar atelectasis and/or early infiltrate. Mild increased markings at the left lung base suggestive of linear atelectasis and/or scarring. Increased markings at the lung apices suggestive of a bilateral apical scarring. Normal heart and pericardium. Normal mediastinum. Normal hilar regions. Normal enhanced pulmonary arteries. There is atherosclerotic calcification of the aortic arch . There are multi-level degenerative changes of the thoracic spine. There is no demonstrated abnormality of the visualized upper abdomen. CT/Chest WITH Contrast IMPRESSION: Tiny right pleural effusion with underlying infiltration and/or atelectasis. Electronically Signed: Ferny Beckett MD at 10:30 EDT Tel [phone], Service support ,
--- NOTE | 2018-02-07 09:15 | CT_ITS ---
STUDY: CT ABDOMEN AND PELVIS WITH CONTRAST REASON FOR EXAM: Female, 77 years old. Back pain. Bilateral upper extremity pain and left hip pain. RADIATION DOSAGE (If Supplied By Facility): CTDIvol = ( 14.69 ) mGy, DLP = ( 1545.24 ) mGycm TECHNIQUE: Transaxial images were obtained from the dome of the diaphragm to the symphysis pubis without oral contrast. 100 ml of Isovue 300 contrast was administered. Sagittal and coronal images were reconstructed. Individualized dose optimization techniques were used for this CT. COMPARISON: Comparison is made with prior study dated October 10, 2010. FINDINGS: Mild increased markings at the lung bases slightly more prominent on the right side. This may represent bibasilar atelectasis and/or early infiltrates. The visualized portions of the heart are within normal limits. There is a 1.6 cm x 1.5 cm cyst in the peripheral lateral aspect of the right lobe of the liver along its inferior margin. This is unchanged. Hepatomegaly. Normal gallbladder and extrahepatic biliary system. Normal spleen. Normal pancreas. Normal bilateral adrenal glands. Normal right kidney. There is a 1.3 cm parapelvic cyst in the left kidney. Normal visualized stomach. Normal small intestine. There are multiple colonic diverticula consistent with diverticulosis. The appendix is visualized and appears normal. There is diffuse atherosclerotic calcification of the abdominal aorta, without a demonstrated aneurysm. Normal inferior vena cava. Normal retroperitoneum. Normal urinary bladder. There is a 4.4 cm x 3.4 cm cyst in the left ovary. Normal abdominal wall. There are diffuse degenerative changes of the visualized lumbar spine. Levoscoliosis. Status post left total hip preplacement. CT/Abdomen/Pelvis W IV Cont ONLY IMPRESSION: Hepatomegaly. Stable right hepatic cyst. Stable 4.4 cm x 3.4 cm cyst in the left adnexa. Electronically Signed: Ferny Beckett MD at 10:27 EDT Tel [phone], Service support ,
--- NOTE | 2018-02-07 09:20 | CT_ITS ---
STUDY: CT LUMBAR SPINE WITHOUT CONTRAST REASON FOR EXAM: Female, 77 years old. Bilateral upper extremity pain. Low back pain. Left hip pain. RADIATION DOSAGE (If Supplied By Facility): CTDIvol = ( 14.69 ) mGy, DLP = ( 1545.24 ) mGycm TECHNIQUE: The patient was scanned in a multi detector CT scanner. High resolution transaxial imaging was performed. Images were obtained from to . Sagittal and coronal images were reconstructed. Individualized dose optimization techniques were used for this CT. COMPARISON: None FINDINGS: Normal lumbar lordosis. There is a moderate levoscoliosis of the lumbar spine. Normal vertebrae of the lumbar spine. L1-2: Mild degree of disc space narrowing. L2-3: Normal endplates. Normal disc height and morphology. Normal bilateral facet joints. Normal central canal and bilateral lateral recesses. Normal bilateral intervertebral neural foramina. L3-4: Mild degree of disc space narrowing. Facet joint osteoarthritis. No evidence of herniated nucleus pulposis. L4-5: Moderate degree of disc space narrowing with subchondral sclerosis. Facet joint osteoarthritis. There is no evidence of herniated nucleus pulposus or spinal stenosis. L5-S1: Moderate degree of disc space narrowing. Facet joint osteoarthritis. There is no evidence of stenosis. Atherosclerotic calcification of the abdominal aorta. CT/Spine Lumbar without Contrast IMPRESSION: Multilevel degenerative changes, as described above. Electronically Signed: Ferny Beckett MD at 10:34 EDT Tel [phone], Service support ,
[2018-02-07] MEDS: 0.9% Normal Saline 1,000 ML 150 ML IV (09:32)
[2018-02-07 09:57] LABS: Lactic Acid 1.2 mmol/L (0.4-2.0)
[2018-02-07 13:13] VITALS: BMI 24.3
[2018-02-07 13:14] VITALS: BP 126/55; PULSE 77; RESP 18; TEMP 36.7; O2SAT 98
[2018-02-07 13:36] VITALS: BMI 24.4
[2018-02-07] MEDS: 0.9% Normal Saline 1,000 ML 100 ML IV (14:44)
[2018-02-07] MEDS: Ciprofloxacin 400 MG/200 ML BAG 200 MG IV ×2 (14:44→21:03)
[2018-02-07] MEDS: 0.9% NaCl Peripheral Flush Adult/Peds IV (14:46)
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
--- NOTE | 2018-02-07 16:10 | CASEMGMT ---
Social Work Note Pt is being listed as being from [facility]. SW met with pt. SW introduced self and role at [facility]. Pt is alert and orientated and keeps saying she is in pain. Pt confirms that she is from [facility]. SW informed pt that pt may need extra PT/OT at discharge and may benefit from short stay at SNF for rehab. Pt states I am too much pain to think about PT/OT right now. SW will continue to follow along to assist with discharge planning. Plan: Return to [facility] vs. SNF Trinh Mcallister FITTER UP, PSYCHIATRY PHYSICIAN
[2018-02-07] MEDS: oxyCODONE 5 MG Tablet 15 MG PO ×2 (17:07→21:03)
[2018-02-07 20:15] VITALS: BP 122/62; PULSE 74; RESP 18; TEMP 37.1; O2SAT 97
[2018-02-07] MEDS: Temazepam 15 MG Capsule PO (21:03)
[2018-02-07] MEDS: Montelukast 10 MG Tablet PO (21:03)
[2018-02-08] MEDS: 0.9% Normal Saline 1,000 ML 100 ML IV (02:21)
[2018-02-08] MEDS: oxyCODONE 5 MG Tablet 15 MG PO (04:01)
[2018-02-08 04:13] VITALS: BP 148/70; PULSE 88; RESP 18; TEMP 37.2; O2SAT 95
[2018-02-08 08:48] VITALS: BP 146/82; PULSE 82; RESP 18; TEMP 37; O2SAT 94
[2018-02-08] MEDS: Enoxaparin 40 MG/0.4 ML Syringe SC (08:52)
[2018-02-08] MEDS: Pantoprazole Sodium 20 MG Tablet PO (08:53)
[2018-02-08] MEDS: Tolterodine Tartrate 2 MG CAP.SA PO (08:53)
[2018-02-08] MEDS: Ciprofloxacin 400 MG/200 ML BAG 200 MG IV (08:53)
[2018-02-08] MEDS: FLUoxetine 20 MG Capsule 40 MG PO (08:54)
[2018-02-08] MEDS: ALPRAZolam 0.5 MG Tablet PO (08:54)
--- NOTE | 2018-02-08 10:13 | DCINST_ITS ---
You will use the following diet at home:: Regular Your food should be the consistency of: Regular Your liquids should be the consistency of: Regular/Thin Discharge Activity: No Restrictions Call your doctor if you observe: Fever of 101 or Higher, Inability to urinate Allergies/Adverse Reactions: Allergies acetaminophen [From Vicodin] Allergy (Verified 02/05/18 05:55) Unknown aspirin Allergy (Verified 02/05/18 05:55) Unknown gabapentin Allergy (Verified 02/05/18 06:29) Itching hydrocodone bitartrate [From Vicodin] Allergy (Verified 02/05/18 05:55) Unknown Sulfa (Sulfonamide Antibiotics) Allergy (Verified 02/05/18 05:55) Unknown fexofenadine [From Anna] Adverse Reaction (Verified 02/05/18 06:29) Itching sertraline [From Zoloft] Adverse Reaction (Verified 02/05/18 06:29) Diarrhea Medications to take at Discharge ALPRAZolam [Xanax] 0.5 mg PO DAILY 02/05/18 Albuterol Inhaler [Ventolin Hfa] 1 - 2 puff INHALATION Q6H PRN PRN 02/05/18 Cholecalciferol (Vitamin D3) [Vitamin D3] 50,000 unit PO QWEEK 02/05/18 Fluoxetine HCl 40 mg PO DAILY 02/05/18 Mupirocin [Bactroban] 1 applic TOPICAL TID 02/05/18 Ondansetron HCl [Zofran] 4 mg PO Q8H PRN 02/05/18 Oxybutynin Chloride [Ditropan Xl] 10 mg PO DAILY 02/05/18 Oxycodone HCl [Roxicodone] 15 mg PO 4X/DAY PRN 02/05/18 Pantoprazole Sodium [Protonix] 20 mg PO DAILY 02/05/18 Temazepam [Restoril] 15 mg PO QHS 02/05/18 Tizanidine HCl [Zanaflex] 2 mg PO BID PRN 02/05/18 Zafirlukast [Accolate] 20 mg PO BID 02/05/18 hydrOXYzine pamoate capsule [Vistaril pamoate capsule] 50 mg PO TID PRN PRN 02/05/18 Ciprofloxacin HCl 500 mg PO BID #14 tablet 02/08/18 The following prescriptions were given: Ciprofloxacin HCl 500 mg PO BID #14 tablet Primary Care Physician: Roland Hall MD [Primary Care Provider] - Please follow up with your Primary Care Physician in: in 3-5 days Test Results: Test results from this visit will be discussed in further detail at your follow- up appointment, if applicable.
[2018-02-08 10:22] LABS: Absolute Lymphocyte Count 1.24 X10^3/ul (0.83-4.51); Absolute Neutrophil Count 15.1 X10^3/uL (2.0-7.7); Basophil# 0.05 X10^3/uL; Basophil% 0.3 % (0-1); Eosinophil# 0.02 X10^3/uL; Eosinophils% 0.1 % (0-5); Hematocrit 31.1 % (37-47); Hemoglobin 10.2 g/dl (12.0-15.0); Lymphocyte # 1.24 X10^3/ul (4.0); Lymphocyte % 6.9 % (19-41); Mean Corp Hgb Conc 32.8 g/gl (32-36); Mean Corpuscular Hgb 27.7 pg (27.0-32.0); Mean Corpuscular Volume 84.5 fL (81-99); Mean Platelet Vol. 9.1 fl (6.2-12.0); Monocyte% 8.3 % (0-10); Neutrophil % 83.7 % (47-70); Platelet Count 373 K/mm3 (150-450); RBC Distribution Width CV 15.3 % (11.6-14.6); RBC Distribution Width SD 46.7 fl (35.1-43.9); Red Blood Count 3.68 M/mm3 (4.2-5.4)
[2018-02-08 10:23] LABS: POSITIVE COUNT NO; POSITIVE DIFFERENTIAL NO; POSITIVE MORPHOLOGY NO
[2018-02-08 10:52] LABS: Anion Gap 7 (5-15); BUN 7 mg/dL (7-18); BUN/Creat Ratio 12.6 RATIO (10-20); Calcium,Total 8.4 mg/dL (8.5-10.1); Chloride 100 mmol/L (98-107); Creatinine, Serum 0.55 mg/dL (0.55-1.02); EST Glomerular Filtration Rate 113 mL/min (>60); Est Glom Filt Rate - Afr Amer 137 mL/min (>60); Estimated Creatinine Clearance 38.44 ml/min; Glucose 145 mg/dL (74-106); Potassium 3.8 mmol/L (3.5-5.1); Sodium Level 132 mmol/L (136-145)
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
[2018-02-11 13:06] LABS: Pathologist Review Reviewed
== END 2018-02-08 10:46 | disposition intermediate care facility (04) ==
LOC: ED 08:37 → MS3 12:45
PROVIDERS: Admitting Provider Family Medicine; Emergency Provider Emergency Medicine; Family Provider Family Medicine; PCP Family Medicine; Visit Provider Family Medicine
DX: N39.0 Urinary tract infection, site not specified (principal); B96.5 Pseudomonas (aeruginosa) (mallei) (pseudomallei) as the cause of diseases classified elsewhere; Z79.899 Other long term (current) drug therapy; J44.9 Chronic obstructive pulmonary disease, unspecified; K21.9 Gastro-esophageal reflux disease without esophagitis; F41.9 Anxiety disorder, unspecified; F32.9 Major depressive disorder, single episode, unspecified; M19.90 Unspecified osteoarthritis, unspecified site; Z91.81 History of falling; G89.29 Other chronic pain; F17.200 Nicotine dependence, unspecified, uncomplicated; R62.7 Adult failure to thrive
CPT/HCPCS: 36415; 71045; 71260; 72131; 72170; 74177; 80048; 80053; 80320; 81001; 83605; 85025; 87040; 96361; 96365; 96366; 96367; 96372; 99218; 99285; 99406; J7030; Q9967; A4216; G0378; G0480; J0744

== ENCOUNTER 2018-07-30 01:09 | Emergency (ER) | payer MEDICARE, SELFPAY ==
[2018-07-30 01:11] VITALS: BP 110/70; PULSE 79; RESP 18; TEMP 37.1; O2SAT 94; BMI 21.7
--- NOTE | 2018-07-30 01:26 | ED.VIS.GEN ---
History of Present Illness Chief Complaint: Constipation Detail of Chief Complaint: 32 pound unintentional weight loss since 0 12/15 8 Informant: Patient Onset: Weeks, Month(s) Context: Gradual Onset Timing: Continuous Quality: generalized abdominal discomfort Location: Abdomen Current Severity: Mild Maximum Severity: Moderate Worsened by: Per patient lack of bowel movement Relieved by: Nothing Associated Symptoms: Nausea and one episode of vomiting past week Narrative: Patient is an elderly woman who is not a good informant. She informed me that she had problems for 1 week. She informed her nurse, Kannan, she has had problems since January. She apparently saw Dr. Hall this week. She had blood test done. She does not know results and does not have access to my chart. She denies fever, chills or night sweats. She does report an unintentional weight loss of 32 pounds since January. She is status post bilateral tubal ligation. She has no prior history of small bowel or large bowel obstruction. She denies dysuria, frequency, urgency or hematuria. She does report decreased appetite. She denies myalgias or arthralgias. She denies bone pain. Prior similar symptoms: Yes Recent Illness/Hospitalization: Yes - Past Medical History (1) Anxiety Status: Chronic (2) COLD (chronic obstructive lung disease) Status: Chronic (3) Degenerative joint disease Status: Chronic (4) Depression Status: Chronic Past Medical History - Allergies and Home Meds Allergies/Adverse Reactions: Allergies acetaminophen [From Vicodin] Allergy (Verified 02/05/18 05:55) Unknown aspirin Allergy (Verified 02/05/18 05:55) Unknown gabapentin Allergy (Verified 02/05/18 06:29) Itching hydrocodone bitartrate [From Vicodin] Allergy (Verified 02/05/18 05:55) Unknown Sulfa (Sulfonamide Antibiotics) Allergy (Verified 02/05/18 05:55) Unknown fexofenadine [From Anna] Adverse Reaction (Verified 02/05/18 06:29) Itching sertraline [From Zoloft] Adverse Reaction (Verified 02/05/18 06:29) Diarrhea Primary Care Physician: Roland Hall MD [Primary Care Provider] - Prior records reviewed: Yes Surgical History: herniorrhaphy, - - Bilateral tubal ligation Lives: Alone Smoking Status: Current some day smoker Drugs: None - Family History Paternal Family History: Reports: Cancer - throat Review of Systems General: Reports: Malaise, Weight loss. Denies: Chills, Fever, Subjective, Sweats Eyes: Denies: Visual changes - bilaterally, Blurred Vision - bilaterally, Diplopia ENT: Denies: Rhinorrhea, Sore throat Cardiovascular: Denies: Chest pain, Palpitations Respiratory: Denies: Dyspnea, Cough, Dyspnea on exertion Gastrointestinal: Reports: Abdominal pain, Nausea, Vomiting, Constipation, - - Patient states she normally has diarrhea.. Denies: Melena, Hematochezia Genitourinary: Denies: Dysuria, Hematuria, Frequency Musculoskeletal: Denies: Back pain, Extremity Pain Skin: Denies: Rash, Wounds Neurological: Denies: Headache, Weakness, Numbness Psych: Reports: Depression Endocrine: Denies: Polyuria, Polydipsia Hematologic: Denies: Easy bruising, Easy bleeding Physical Exam Vital Signs/Narrative: Vital Signs Temp Pulse Resp BP Pulse Ox 07/30/18 01:11 98.8 F 79 18 110/70 94 Inital Vital Signs reviewed: Yes General: Well developed, Cachectic, No Acute Distress Head: Normocephalic, Atraumatic Eyes: Perrl, EOMI. Negative for: Pale conjunctiva, Scleral icterus ENT: No rhinorrhea, TM's clear. Negative for: Nasal congestion Neck: Supple, Nontender, No lymphadenopathy, No JVD, - Cardiovascular: Regular rate, Regular rhythm, No murmurs, Normal S1, Normal S2 Respiratory: No distress, CTA bilaterally, Chest nontender Abdomen: Soft, No masses, Tender, Hypoactive bowel sounds. Negative for: Hepatomegaly, Splenomegaly, Mass, Pulsatile mass, Umbilical hernia Rectal: Tenderness, - - No fissures or fistulas noted. There is no stool in the rectal vault. Back: Nontender, Normal Inspection Extremities: Nontender, No edema Skin: Normal color, No rash Neurological: Alert, Oriented x3, Cranial nerves II-XII grossly intact, Normal Strength, Normal Sensation Psychological: Depressed Diagnostic/Tx/Re-eval Chest X-Ray - ED: Read by ED Physician, - - 3 view abdominal series obtained. The chest portion is normal. There is evidence of scoliosis. There is significant scoliosis lumbar spine. There is significant amount of fecal stasis. There is no evidence of obstruction or ileus. Patient is status post left total hip arthroplasty. There is calcification of the aorta. The aorta is normal size. Impressions Acute Abdomen Series 07/30/18 01:50 IMPRESSION: Constipation. Scoliosis. No evidence of acute focal infiltrate. Electronically Signed: Esperanza Bauer MD at 2:06 EDT Tel , Service support , 07/30/18 01:50 Acute Abdomen Inc Chest [RAD] Stat Laboratory Results 07/30/18 07/30/18 01:40 01:40 WBC 9.2 RBC 4.35 Hgb 10.3 L Hct 32.7 L MCV 75.2 L MCH 23.7 L MCHC 31.5 L RDW 18.5 H RDW Differential 51.3 H Plt Count 441 MPV 8.3 Immature Gran % (Auto) 0.100 Neut % (Auto) 57.0 Lymph % (Auto) 28.5 [place] % (Auto) 9.8 Eos % (Auto) 3.8 Baso % (Auto) 0.8 Absolute Neuts (auto) 5.2 Absolute Lymphs (auto) 2.62 Total Counted Not Reportable Sodium 134 L Potassium 4.0 Chloride 101 Carbon Dioxide 27.0 Anion Gap 6 BUN 12 Creatinine 0.90 Estim Creat Clear Calc 38.20 Est GFR (MDRD) Af Amer 78 Est GFR (MDRD) Non-Af 65 BUN/Creatinine Ratio 13.3 Glucose 86 Calcium 9.0 Total Bilirubin 0.30 AST 11 L ALT 12 L Alkaline Phosphatase 94 Total Protein 7.2 Albumin 3.2 Globulin 4.0 Albumin/Globulin Ratio 0.8 L - Rhythm Strip Rhythm Strip: Sinus Rhythm Rate: 75 Ectopy: None - Medical Decision Making Because patient reports unintentional weight loss and does not have access to recent blood tests will obtain a CMP and CBC. Abdominal series was ordered to determine if there is evidence of obstruction. This may represent a mechanical obstruction secondary to obstipation/fecal stasis versus other cause. Because of poor appetite and weight loss need to evaluate electrolytes, anemia. Laboratory testing is remarkable for microcytic anemia. Patient has significant amount of fecal stasis consistent with constipation. She was discharged to home with appropriate home-going instructions to help her move her bowels and prevent this from occurring in the future. ED Disposition - Plan for ED Patient: Disposition: Home or Assisted Living Diagnosis: Abdominal pain due to constipation, Microcytic anemia, Depression, Unintentional weight loss of less than 10% body weight within 6 months Instructions: ED Constipation Referrals: Roland Hall MD [Primary Care Provider] - 3-5 Days if not improving Additional Instructions: Later this morning drink 10 ounces of mag citrate. 4 hours later drink a glass of MiraLAX and continue to drink a glass of MiraLAX every hour until you have results.
[2018-07-30 01:48] LABS: Absolute Lymphocyte Count 2.62 X10^3/ul (0.83-4.51); Absolute Neutrophil Count 5.2 X10^3/uL (2.0-7.7); Basophil# 0.07 X10^3/uL; Basophil% 0.8 % (0-1); Eosinophil# 0.35 X10^3/uL; Eosinophils% 3.8 % (0-5); Hematocrit 32.7 % (37-47); Hemoglobin 10.3 g/dl (12.0-15.0); Lymphocyte # 2.62 X10^3/ul (4.0); Lymphocyte % 28.5 % (19-41); Mean Corp Hgb Conc 31.5 g/gl (32-36); Mean Corpuscular Hgb 23.7 pg (27.0-32.0); Mean Corpuscular Volume 75.2 fL (81-99); Mean Platelet Vol. 8.3 fl (6.2-12.0); Monocyte% 9.8 % (0-10); Neutrophil # 5.24 X10^3/uL (2.7-7.7); POSITIVE COUNT NO; POSITIVE DIFFERENTIAL NO; POSITIVE MORPHOLOGY NO; Platelet Count 441 K/mm3 (150-450); RBC Distribution Width CV 18.5 % (11.6-14.6); RBC Distribution Width SD 51.3 fl (35.1-43.9); Red Blood Count 4.35 M/mm3 (4.2-5.4); White Blood Count 9.2 K/mm3 (4.4-11.0)
--- NOTE | 2018-07-30 01:50 | RAD_ITS ---
STUDY: X-RAY - ACUTE ABDOMINAL SERIES REASON FOR EXAM: Female, 78 years old. Constipation TECHNIQUE: Single view of the chest. Supine, and erect view(s) of the abdomen were obtained. COMPARISON: February 07, 2018 CT abdomen and pelvis FINDINGS: The lungs are clear and expanded. Normal size heart. Normal mediastinum and yakov. Normal visualized pulmonary arteries. There is atherosclerotic calcification of the aortic arch with tortuosity. There is a moderate amount of colonic fecal material. The soft tissue structures of the abdomen and pelvis are unremarkable. The resected appearance of the medial right clavicle. There is levoscoliosis of the lumbar spine. There is a left hip arthroplasty. RAD/Acute Abdomen Inc Chest IMPRESSION: Constipation. Scoliosis. No evidence of acute focal infiltrate. Electronically Signed: Esperanza Bauer MD at 2:06 EDT Tel , Service support ,
[2018-07-30 02:01] LABS: ALB/GLOB Ratio 0.8 RATIO (0.9-2.4); AST(SGOT) 11 U/L (15-37); Alanine Aminotransfer ALT/SGPT 12 U/L (13-56); Albumin, Serum 3.2 g/dL (3.2-5.0); Alkaline Phosphatase 94 U/L (45-117); Anion Gap 6 (5-15); BUN 12 mg/dL (7-18); BUN/Creat Ratio 13.3 RATIO (10-20); Chloride 101 mmol/L (98-107); EST Glomerular Filtration Rate 65 mL/min (>60); Est Glom Filt Rate - Afr Amer 78 mL/min (>60); Glucose 86 mg/dL (74-106); Protein, Total 7.2 g/dL (6.4-8.2); Sodium Level 134 mmol/L (136-145)
--- NOTE | 2018-07-30 02:29 | ED.VISSUMM ---
- ER Visit Summary Date of Service: 07/30/18 Chief Complaint: [] History of Present Illness: The patient is a 78 F [] Physical Examination: [] Test Results: [] Emergency Department Course and Treatment: [] Treatment Plan: [] Disposition: [] Impression: [] This note was generated with [employer] dictation software. It may contain incorrect words, spelling, and punctuation that were not noted in review of the chart prior to signing ED Disposition - Plan for ED Patient: Disposition: Home or Assisted Living Diagnosis: Abdominal pain due to constipation, Microcytic anemia, Depression, Unintentional weight loss of less than 10% body weight within 6 months Instructions: ED Constipation Prescriptions: Magnesium Citrate 296 ml PO X1 #1 solution Polyethylene Glycol 3350 [Miralax] 238 gm PO UD #1 powder Referrals: Roland Hall MD [Primary Care Provider] - 3-5 Days if not improving Additional Instructions: Later this morning drink 10 ounces of mag citrate. 4 hours later drink a glass of MiraLAX and continue to drink a glass of MiraLAX every hour until you have results.
--- NOTE | 2018-07-30 02:33 | ED.DCSUM_ITS ---
- ER Visit Summary Date of Service: 07/30/18 Chief Complaint: [] History of Present Illness: The patient is a 78 F [] Physical Examination: [] Test Results: [] Emergency Department Course and Treatment: [] Treatment Plan: [] Disposition: [] Impression: [] This note was generated with [employer] dictation software. It may contain incorrect words, spelling, and punctuation that were not noted in review of the chart prior to signing ED Disposition - Plan for ED Patient: Disposition: Home or Assisted Living Diagnosis: Abdominal pain due to constipation, Microcytic anemia, Depression, Unintentional weight loss of less than 10% body weight within 6 months Instructions: ED Constipation Prescriptions: Magnesium Citrate 296 ml PO X1 #1 solution Polyethylene Glycol 3350 [Miralax] 238 gm PO UD #1 powder Referrals: Roland Hall MD [Primary Care Provider] - 3-5 Days if not improving Additional Instructions: Later this morning drink 10 ounces of mag citrate. 4 hours later drink a glass of MiraLAX and continue to drink a glass of MiraLAX every hour until you have results.
[2018-07-30 04:09] VITALS: PULSE 76; RESP 16; O2SAT 98
== END 2018-07-30 04:10 | disposition home or self-care (01) ==
PROVIDERS: Emergency Provider Emergency Medicine; Family Provider Family Medicine; PCP Family Medicine
DX: K59.00 Constipation, unspecified (principal); D50.9 Iron deficiency anemia, unspecified; R10.9 Unspecified abdominal pain; F32.9 Major depressive disorder, single episode, unspecified; R63.4 Abnormal weight loss; J44.9 Chronic obstructive pulmonary disease, unspecified; F17.200 Nicotine dependence, unspecified, uncomplicated; Z79.51 Long term (current) use of inhaled steroids
CPT/HCPCS: 74022; 80053; 85025; 99285

== ENCOUNTER 2018-08-22 11:00 | Outpatient (RCR) | payer MEDICARE, SELFPAY ==
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
--- NOTE | 2018-12-10 14:53 | HP.PTDCNRP_ITS ---
HP - Discharge Summary (1) - Patient Information SHARAD DURÁN was seen in my office for initial evaluation on 08/07/18. The following Plan of Care was established for this patient: Initial Frequency: 2x /Week Initial Duration: 4 Weeks - Anticipated Interventions Patient/Client Instruction: Educate patient on: Condition, Plan of Care For the Purpose of:: To decrease pain, To increase ROM, To improve muscle pe rformance and motor function, To increase tolerance to activity/condition/position, To improve ability of physical actions for home/community/work/leisure, To improve gait and locomotor functions, To improve health of tissue, To decrease soft tissue restriction, To improve endurance, To improve balance, To improve ability to perform tasks related to life management Therapeutic Exercise to Include: Strength training, Body mechanics, Postural training, Flexibilty training, In an aquatic setting, Dynamic Lumbar Stabilization For the Purpose of:: To decrease pain, To improve muscle performance and motor function, To increase tolerance to activity/condition/position, To improve ability of physical actions for home/community/work/leisure, To improve health of tissue, To decrease soft tissue restriction, To increase flexibility/ROM, To improve endurance, To improve balance, To improve ability to perform tasks related to life management This patient was last seen in our office 08/22/18. Pertinent comments regarding their Physical therapy will appear below: Patient seen in Aquatic PT for generalized weakness for couple of tx then NS thus is d/c from PT. At this point I will be discontinuing this patient from physical therapy. I would be happy to see this patient again in the future if found appropriate by the physician. Thank you! Emil Garcia, PT, Cert MDT, OCS
== END 2018-08-22 19:00 | disposition home or self-care (01) ==
LOC: PT 11:00
PROVIDERS: Family Provider Family Medicine; PCP Family Medicine; Referring Provider Family Medicine; Visit Provider Family Medicine
DX: R53.1 Weakness (principal)
CPT/HCPCS: 97113; 97162

== ENCOUNTER 2019-12-04 18:37 | Emergency (ER) | payer MEDICARE, MEDICAID, SELFPAY ==
[2019-12-04 18:38] VITALS: BP 120/76; PULSE 85; RESP 17; TEMP 36.7; O2SAT 97; BMI 22.4
--- NOTE | 2019-12-04 19:31 | RAD_ITS ---
STUDY: X-RAY - UNILATERAL RIBS ( RIGHT ) WITH CHEST REASON FOR EXAM: Female, 79 years old. RIGHT RIB PAIN AFTER FALL TECHNIQUE - RIBS: 3 view(s) of the ribs. TECHNIQUE - CHEST: Single PA view of the chest. COMPARISON: Acute abdomen study dated JULY 30 2018. FINDINGS - RIBS: Reidentification of healed fracture deformity at the posterior lateral aspect right fifth rib. Normal visualized ribs without a demonstrated acute fracture. No visualized pneumothorax or pleural effusion. FINDINGS - CHEST: The lungs are clear and expanded. There is no demonstrated pleural abnormality. Normal size heart. Normal mediastinum and yakov. Normal visualized pulmonary arteries. There is atherosclerotic calcification of the aortic arch with tortuosity. There are diffuse degenerative changes of the visualized thoracic spine. There is degenerative osteoarthritis of the bilateral shoulders. There is no demonstrated abnormality of the visualized soft tissue structures of the upper abdomen. RAD/Ribs Uni Min 3V w/PA Chest IMPRESSION: 1. RIBS: Reidentification of healed fracture deformity at the posterior lateral aspect right fifth rib. Normal visualized ribs without a demonstrated acute fracture. No visualized pneumothorax or pleural effusion. 2. CHEST: Normal x-ray examination of the chest. Electronically Signed: Ruben Sharif MD at 19:57 EDT , Service support ,
--- NOTE | 2019-12-04 20:23 | RAD_ITS ---
STUDY: X-RAY - PELVIS AND RIGHT HIP REASON FOR EXAM: Female, 79 years old. Fall today. Pain in neck and hip. TECHNIQUE: 3 views of the pelvis and hip. COMPARISON: None. FINDINGS: There is a non-specific bowel gas pattern. Normal visualized soft tissue structures. No demonstrated acute fracture or displaced bony fragment. Normal right hip. Left hip prosthesis is unremarkable. Levoscoliosis of the lower lumbar spine noted. No visualized fracture of the pelvic bony structures. RAD/HIP, UNI W/ Pelvis 2-3 Views IMPRESSION: No visualized acute fracture Electronically Signed: Ruben Sharif MD at 21:30 EDT , Service support ,
--- NOTE | 2019-12-04 20:31 | ED.VIS.GEN ---
History of Present Illness Chief Complaint: Fall Informant: Patient Onset: Yesterday Current Severity: Mild Maximum Severity: Mild Narrative: Patient presents after falling yesterday. She states she has balance problems when she turns too quickly. She turned quickly and fell striking her right side. She is complaining of pain to the right ribs, right shoulder, neck, and right hip. She also complains of having a rash since March. She states her doctor had put her on a few different medications but it seems to come right back. She is complaining of generalized itching. - Past Medical History (1) Anxiety Status: Chronic (2) COPD (chronic obstructive pulmonary disease) Status: Chronic (3) Depression Status: Chronic Past Medical History - Allergies and Home Meds Allergies/Adverse Reactions: Allergies acetaminophen [From Vicodin] Allergy (Verified 12/04/19 18:37) Unknown aspirin Allergy (Verified 12/04/19 18:37) Unknown gabapentin Allergy (Verified 12/04/19 18:37) Itching hydrocodone bitartrate [From Vicodin] Allergy (Verified 12/04/19 18:37) Unknown Sulfa (Sulfonamide Antibiotics) Allergy (Verified 12/04/19 18:37) Unknown fexofenadine [From Anna] Adverse Reaction (Verified 12/04/19 18:37) Itching sertraline [From Zoloft] Adverse Reaction (Verified 12/04/19 18:37) Diarrhea Primary Care Physician: Roland Hall MD [Primary Care Provider] - Prior records reviewed: Yes Surgical History: herniorrhaphy, - - Bilateral tubal ligation Lives: Alone Smoking Status: Current some day smoker - Family History Paternal Family History: Reports: Cancer - throat Review of Systems General: Denies: Chills, Fever Eyes: Denies: Visual changes - bilaterally ENT: Denies: Bilateral ear pain Cardiovascular: Reports: Chest pain - Right rib pain Respiratory: Denies: Dyspnea, Cough Gastrointestinal: Denies: Abdominal pain, Nausea, Vomiting, Diarrhea Musculoskeletal: Reports: Neck pain, Extremity Pain Skin: Denies: Rash Neurological: Denies: Headache Hematologic: Denies: Easy bruising, Easy bleeding Allergy: Denies: Uticaria Physical Exam Vital Signs/Narrative: Vital Signs Temp Pulse Resp BP Pulse Ox 12/04/19 18:38 98.1 F 85 17 120/76 97 Inital Vital Signs reviewed: Yes General: Well nourished, Well developed Head: Normocephalic ENT: Moist mucous membranes Neck: Supple, - - Mild cervical tenderness. No step-offs. Cardiovascular: Regular rate, Regular rhythm Respiratory: No distress, Wheezing - Mild expiratory wheezes, Chest tenderness - Mild right rib tenderness. No crepitus. Abdomen: Soft, Nontender Back: Nontender Extremities: - - Patient has tenderness over the greater trochanter of the right hip. No leg length discrepancies noted. Neurological: Alert, Oriented x3 Psychological: Normal affect Diagnostic/Tx/Re-eval Impressions Ribs w/Chest X-Ray 12/04/19 19:31 IMPRESSION: 1. RIBS: Reidentification of healed fracture deformity at the posterior lateral aspect right fifth rib. Normal visualized ribs without a demonstrated acute fracture. No visualized pneumothorax or pleural effusion. 2. CHEST: Normal x-ray examination of the chest. Electronically Signed: Ruben Sharif MD at 19:57 EDT , Service support , Hip/Pelvis X-Ray 12/04/19 20:23 IMPRESSION: No visualized acute fracture Electronically Signed: Ruben Sharif MD at 21:30 EDT , Service support , Cervical Spine X-Ray 12/04/19 20:40 IMPRESSION: Multilevel degenerative changes of the cervical spine. Electronically Signed: Ruben Sharif MD at 21:28 EDT , Service support , 12/04/19 19:31 Xray Ribs [Ribs Uni Min 3V w/PA Chest] [RAD] Stat 12/04/19 20:23 HIP, UNI W/ Pelvis 2-3 Views [RAD] Stat 12/04/19 20:40 Xray Cervical [Cerv Spine 2 or 3 Views] [RAD] Stat - Medical Decision Making Patient is requesting something to help control her itching. She was initially ordered Vistaril, but states she only takes this at home without improvement. She is given IM Benadryl. She is also given p.o. prednisone. X-rays are unremarkable. She will be given a prescription for prednisone taper. She is given phone numbers and referral for dermatology. ED Disposition - Plan for ED Patient: Disposition: Home or Assisted Living Diagnosis: Rash, Rib contusion Instructions: ED CONTUSION Rib, ED Mechanical Fall Prescriptions: Prednisone 10 mg PO UD #33 tablet Referrals: Roland Hall MD [Primary Care Provider] - Varghese Berrios MD [STAFF PHYSICIAN] - Phuong Arreguin MD [NON-STAFF] - Additional Instructions: As discussed, please follow-up with dermatology for treatment of your rash
--- NOTE | 2019-12-04 20:40 | RAD_ITS ---
STUDY: X-RAY - CERVICAL SPINE REASON FOR EXAM: Female, 79 years old. Fall today. Pain in neck and hip. TECHNIQUE: 4 view(s) of the cervical spine were obtained. COMPARISON: None FINDINGS: Normal anterior atlantoaxial articulation. Normal odontoid process. There is reversal of the normal cervical lordosis. There is diffuse demineralization of the cervical spine. There is moderate multi-level degenerative disc disease with multilevel disc space narrowing. No visualized acute fracture or compression deformity. Anterolisthesis of C3 on C4 of 2 mm is present. The soft tissue structures are unremarkable. RAD/Cerv Spine 2 or 3 Views IMPRESSION: Multilevel degenerative changes of the cervical spine. Electronically Signed: Ruben Sharif MD at 21:28 EDT , Service support ,
[2019-12-04] MEDS: DiphenhydrAMINE 50 MG/ML Syringe 25 MG IM ×2 (21:09→22:49)
[2019-12-04] MEDS: predniSONE 20 MG Tablet 40 MG PO (21:09)
[2019-12-04 22:47] VITALS: PULSE 85; RESP 20; O2SAT 96
--- NOTE | 2019-12-04 22:49 | ED.RN ---
SCANNER IN ROOM 11 IN ED NOT WORKING AT THIS TIME.
== END 2019-12-04 22:56 | disposition home or self-care (01) ==
PROVIDERS: Emergency Provider Emergency Medicine; PCP Family Medicine
DX: S20.211A Contusion of right front wall of thorax, initial encounter (principal); M54.2 Cervicalgia; M25.551 Pain in right hip; R21 Rash and other nonspecific skin eruption; W19.XXXA Unspecified fall, initial encounter; Y93.9 Activity, unspecified; Y92.9 Unspecified place or not applicable; F32.9 Major depressive disorder, single episode, unspecified; F41.9 Anxiety disorder, unspecified; J44.9 Chronic obstructive pulmonary disease, unspecified; Z79.899 Other long term (current) drug therapy; F17.200 Nicotine dependence, unspecified, uncomplicated
CPT/HCPCS: 71101; 72040; 73502; 96372; 99283

== ENCOUNTER 2020-04-27 13:19 | Emergency (ER) | payer MEDICARE, MEDICAID, SELFPAY ==
[2020-04-27 13:20] VITALS: BP 134/74; PULSE 76; RESP 18; TEMP 36.3; O2SAT 97; BMI 23.4
--- NOTE | 2020-04-27 14:13 | ED.VIS.GEN ---
History of Present Illness Chief Complaint: Chest Other Informant: Patient Narrative: 79-year-old female tells me she does not know why she is here. She tells me that she has active Covid. Actually she had Covid in mid March and has since recovered. I again asked what events have led to her coming to emergency and she states that she had a chest x-ray that showed that she had blood clots in her lungs and she needs a CAT scan. I asked to ordered this because you can typically see blood clots on a chest x-ray. She states that she does not have a doctor because he is not a real doctor. She tells me that I should go look in her chart and that is where the information will be found. I informed her that this is not a [facility] hospitals I do not have access to her [facility] chart. She tells me that this is because [place] is horrible and nothing works at this hospital. She then starts to remove all of her cardiac monitoring equipment. - Past Medical History (1) COLD (chronic obstructive lung disease) Status: Chronic (2) Degenerative joint disease Status: Chronic (3) Depression Status: Chronic Past Medical History - Allergies and Home Meds Allergies/Adverse Reactions: Allergies acetaminophen [From Vicodin] Allergy (Verified 12/04/19 18:37) Unknown aspirin Allergy (Verified 12/04/19 18:37) Unknown gabapentin Allergy (Verified 12/04/19 18:37) Itching hydrocodone bitartrate [From Vicodin] Allergy (Verified 12/04/19 18:37) Unknown Sulfa (Sulfonamide Antibiotics) Allergy (Verified 12/04/19 18:37) Unknown fexofenadine [From Anna] Adverse Reaction (Verified 12/04/19 18:37) Itching sertraline [From Zoloft] Adverse Reaction (Verified 12/04/19 18:37) Diarrhea CATS Allergy (Uncoded 04/27/20 13:22) PT UNSURE OF REACTION Primary Care Physician: Roland Hall MD [Primary Care Provider] - As soon as possible Surgical History: herniorrhaphy, - - Bilateral tubal ligation Smoking Status: Current some day smoker Drugs: None - Family History Paternal Family History: Reports: Cancer - throat Review of Systems General: Denies: Chills, Fever, Sweats Eyes: Denies: Visual changes - bilaterally, Diplopia ENT: Denies: Rhinorrhea, Sore throat Cardiovascular: Reports: Chest pain. Denies: Palpitations Respiratory: Denies: Dyspnea, Cough, Dyspnea on exertion Gastrointestinal: Denies: Abdominal pain, Nausea, Vomiting, Diarrhea, Melena, Hematochezia Genitourinary: Denies: Dysuria, Hematuria, Frequency Musculoskeletal: Reports: Arthralgias. Denies: Back pain, Extremity Pain Skin: Denies: Rash, Wounds Neurological: Denies: Headache, Weakness, Numbness Physical Exam Vital Signs/Narrative: Vital Signs Temp Pulse Resp BP Pulse Ox 04/27/20 13:20 97.4 F L 76 18 134/74 H 97 General: Well nourished, Well developed, No Acute Distress Head: Normocephalic, Atraumatic Eyes: EOMI ENT: Moist mucous membranes, No rhinorrhea Cardiovascular: Regular rate, Regular rhythm, No murmurs Respiratory: No distress, CTA bilaterally, Chest nontender Abdomen: Soft, Nontender, Nondistended, Normal bowel sounds Extremities: Nontender, No edema Skin: Normal color, No rash Neurological: Alert, Oriented x3, Cranial nerves II-XII grossly intact, Normal Strength, Normal Sensation Psychological: Agitated Diagnostic/Tx/Re-eval - Medical Decision Making Patient removed all of her support lines and left the emergency department cursing me as she left the ED. After the patient left the emergency department I received a fax stating that she had Covid positive and was having chest pain and that her D-dimer was 690. They wanted us to rule out pulmonary embolism. As she is 79 years old using the age-adjusted D-dimer formula her D-dimer is normal. Therefore using that scientific approach a CTA is not indicated. ED Disposition - Plan for ED Patient: Disposition: Against Medical Advice Diagnosis: Chest pain Instructions: ED Chest Pain, Uncertain Cause Referrals: Roland Hall MD [Primary Care Provider] - As soon as possible
--- NOTE | 2020-04-27 14:22 | ED.RN ---
PT OBSERVED LEAVING THROUGH PHYSICIAN ENTRANCE. THIS RN UNABLE TO REDIRECT PT BACK INSIDE TO BE REGISTERED AND LEAVE THROUGH APPROPRIATE ENTRANCE. PT REFUSES TO COME BACK INSIDE, STATES SHE KNOWS WHERE SHE IS GOING, DOES NOT CARE IF SHE NEEDS TO BE REGISTERED. PT AMBULATED DOWN STEPS AND OUT WALKWAY.
== END 2020-04-27 14:28 | disposition left against medical advice (07) ==
PROVIDERS: Emergency Provider Emergency Medicine; PCP Family Medicine
DX: R07.9 Chest pain, unspecified (principal); J44.9 Chronic obstructive pulmonary disease, unspecified; F32.9 Major depressive disorder, single episode, unspecified; M19.90 Unspecified osteoarthritis, unspecified site; Z79.899 Other long term (current) drug therapy; F17.200 Nicotine dependence, unspecified, uncomplicated
CPT/HCPCS: 99282

== ENCOUNTER 2022-09-11 02:12 | Emergency (ER) | payer MEDICARE, MEDICAID, SELFPAY ==
[2022-09-11 02:13] VITALS: BP 113/57; PULSE 87; RESP 14; TEMP 36.8; O2SAT 91; BMI 30.7
--- NOTE | 2022-09-11 02:52 | EX.ED.DYSGE1 ---
HPI History of Present Illness Chief Complaint: Weakness Narrative Narrative: Patient is 82-year-old female from home with past medical history of bipolar disorder chronic pain reported previous stroke COPD and debility. According to daughter whom she stays with that she was acting appropriately but that approximately 12 hours prior to arrival had a short period of time where she was slurring speech and having difficulty standing or even moving her arms or legs to help take her pants off to use the bathroom. The patient states that this was because of severe pain in her arms and legs. Daughter states she has concerned that it was secondary to a recurrent or mini stroke. The patient denies any recent trauma and she denies any fevers chills excessive cough shortness of breath or dysuria. She does admit to pain in her bilateral hands and right foot and she states that the pain in her foot makes it difficult to stand. She denies any history of gout and she denies any recent trauma to her hands but with increased weakness increased pain and now soft tissue skin changes she was brought in for evaluation with concern for possible infection or neurologic event [facility] Medical History Bipolar affective disorder Dizziness Hyperlipidemia IBS (irritable bowel syndrome) Migraine PVD (peripheral vascular disease) Ventral hernia Home Medications albuterol sulfate 2.5 mg/3 mL (0.083 %) solution for nebulization 2.5 mg inhalation Q4H PRN PRN Shortness Of Breath 07/30/18 [History Last Taken Unknown] albuterol sulfate 90 mcg/actuation aerosol inhaler (ProAir HFA) 1 - 2 puff inhalation Q6H PRN PRN Shortness Of Breath 07/30/18 [History Last Taken Unknown] cholecalciferol (vitamin D3) 1,250 mcg (50,000 unit) capsule 50,000 unit PO QWEEK 07/30/18 [History Last Taken Unknown] donepezil 5 mg tablet 5 mg PO QHS 07/30/18 [History Last Taken Unknown] doxepin 3 mg tablet (Silenor) 3 mg PO DAILY 07/30/18 [History Last Taken Unknown] fluoxetine 40 mg capsule 40 mg PO DAILY 07/30/18 [History Last Taken Unknown] hydroxyzine pamoate 50 mg capsule (Vistaril) 50 mg PO TID PRN PRN Itching 07/30/18 [History Last Taken Unknown] loperamide 2 mg capsule 2 mg PO 4X/DAY PRN PRN Constipation 07/30/18 [History Last Taken Unknown] mirtazapine 15 mg tablet 15 mg PO QHS 07/30/18 [History Last Taken Unknown] mupirocin 2 % topical ointment 1 applic topical TID 07/30/18 [History Last Taken Unknown] ondansetron 4 mg disintegrating tablet 4 mg PO Q8H PRN PRN Nausea 07/30/18 [History Last Taken Unknown] zafirlukast 20 mg tablet 20 mg PO BID 07/30/18 [History Last Taken Unknown] acetaminophen 325 mg tablet 325 mg PO PRN PRN Pain 09/11/22 [History Last Taken Unknown] dextromethorphan-guaifenesin 10 mg-200 mg/5 mL oral liquid 5 ml PO Q6H PRN Cough 09/11/22 [History Last Taken Unknown] diclofenac sodium 1 % topical gel 1 ea topical 4X/DAY PRN PRN Pain 09/11/22 [History Last Taken Unknown] fluticasone furoate 200 mcg-vilanterol 25 mcg/dose inhalation powder (Breo Ellipta) 1 inh inhalation DAILY 09/11/22 [History Last Taken Unknown] fluticasone propionate 50 mcg/actuation nasal spray,suspension 2 spray intranasal DAILY 09/11/22 [History Last Taken Unknown] guaifenesin 600 mg tablet, extended release 12 hr 1,200 mg PO BID 09/11/22 [History Last Taken Unknown] hydrocortisone 1 % topical cream 1 applic topical BID 09/11/22 [History Last Taken Unknown] gxwpilg-dtllzddrsyt-uyxa vera-vit E 0.5 %-5 % lotion 1 ea topical BID 09/11/22 [History Last Taken Unknown] naloxone 4 mg/actuation nasal spray 1 spray intranasal Q3M PRN Overdose 09/11/22 [History Last Taken Unknown] neomycin-bacitracn Zn-polymyxn 3.5 mg-400 unit-5,000 unit top oint pkt (Triple Antibiotic) 1 applic topical TID 09/11/22 [History Last Taken Unknown] oxybutynin chloride 10 mg tablet,extended release 24 hr 10 mg PO DAILY 09/11/22 [History Last Taken Unknown] oxycodone 15 mg tablet 15 mg PO 4X/DAY PRN PRN Pain 09/11/22 [History Last Taken Unknown] pantoprazole 40 mg tablet,delayed release 40 mg PO DAILY 09/11/22 [History Last Taken Unknown] sodium bicarbonate-citric acid 1,940 mg-1,000 mg effervescent tablet 1 ea PO 4X/DAY PRN PRN Heartburn 09/11/22 [History Last Taken Unknown] triamcinolone acetonide 0.1 % topical cream 1 applic topical BID 09/11/22 [History Last Taken Unknown] Allergy/AdvReac Type Severity Reaction Status Date / Time acetaminophen [From Vicodin] Allergy Unknown Verified 09/11/22 02:20 aspirin Allergy Unknown Verified 09/11/22 02:20 cat dander Allergy PT UNSURE Verified 09/11/22 02:20 OF REACTION gabapentin Allergy Itching Verified 09/11/22 02:20 hydrocodone bitartrate Allergy Unknown Verified 09/11/22 02:20 [From Vicodin] Sulfa (Sulfonamide Allergy Unknown Verified 09/11/22 02:20 Antibiotics) fexofenadine [From Anna] AdvReac Itching Verified 09/11/22 02:20 morphine AdvReac Other Verified 09/11/22 04:02 sertraline [From Zoloft] AdvReac Diarrhea Verified 09/11/22 02:20 Social History Smoking Status: Current some day smoker tobacco type: cigarettes ROS ROS ED Constitutional Constitutional ED: Denies chills or fever(s) Eyes Eyes: Denies change in vision ENT ENT ED: Denies sore throat Cardiovascular Cardiovascular: Denies chest pain Respiratory/Chest Respiratory/Chest: Denies cough or dyspnea Gastrointestinal Gastrointestinal: Denies abdominal pain, diarrhea, nausea or vomiting Genitourinary Genitourinary ED: Denies dysuria or hematuria Musculoskeletal Musculoskeletal: Reports myalgias and other Details: Positive bilateral hand pain and right foot pain Integumentary Denies rash Neurologic Neurologic: Reports weakness; Denies headache(s) or paresthesias Hematologic/Lymphatic Hematologic/Lymphatic: Denies easy bleeding or easy bruising EXAM Physical Exam Const Vital Signs: 09/11/22 02:13 09/11/22 02:20 09/11/22 04:14 Temperature 98.3 F Temperature Source Oral Pulse Rate 87 79 Respiratory Rate 14 13 Respiratory Effort Normal Respiratory Pattern Normal Blood Pressure 113/57 L 113/59 L Blood Pressure Mean 75 77 Pulse Ox 91 93 Oxygen Delivery Method Room Air 09/11/22 06:00 Temperature Temperature Source Pulse Rate 83 Respiratory Rate 16 Respiratory Effort Respiratory Pattern Blood Pressure 100/77 Blood Pressure Mean 84 Pulse Ox 94 Oxygen Delivery Method Positive well nourished and well developed General Appearance ED: well developed HEENT Reports dry mucous membranes HEENT Narrative: No signs of infection noted in the posterior pharynx Mouth ED: Yes dry mucous membranes Mouth: dry mucous membranes Eyes PERRL and EOMs intact bilaterally Neck supple and no JVD Neck Narrative: No nuchal rigidity or meningeal signs Resp normal respiratory effort and clear to auscultation bilaterally Resp Narrative: Breath sounds are diminished throughout but overall clear to auscultation no signs of respiratory distress Cardio regular rate and regular rhythm Rate: other Other Details: Radial pulses are plus 2 out of 4 bilaterally are equal and symmetric GI non-tender and non-distended GI Narrative: Abdomen is soft nontender nondistended with hypoactive bowel sounds no voluntary guarding or rigidity no pulsatile mass Auscultation: hypoactive bowel sounds Palpation: soft Extremity Extremity Narrative: Extremities both upper and lower neurovascularly intact. There is mild soft tissue swelling with faint erythema and warmth to the dorsal aspect of the bilateral hands that extends from the MCPs to just proximal to the wrist. No obvious abscess formation noted no lymphangitic streaking present. There is no obvious soft tissue swelling or erythema of the right foot/ankle but there is mild diffuse pain with palpation and active range of motion is decreased secondary to this Neuro oriented x3 and CN's II-XII intact bilaterally Neuro Narrative: Cranial nerves II through XII are grossly intact there are no focal neurologic deficits. No pronator drift or truncal ataxia. NIH stroke scale score of 0. Sensorium / Orientation: alert Psych mental status grossly normal Skin Skin Narrative: Soft tissue swelling erythema to the dorsal aspects of bilateral hands as documented above MDM MDM MDM Narrative Medical decision making narrative: Patient presented to the ER with stable vitals and a NIH stroke scale score of 0. Daughter had reported generalized weakness with inability to ambulate and slurred speech approximately 12 hours prior to arrival. Based on the prolonged timeframe between onset of symptoms and presentation and the fact they have spontaneous resolved I do not feel the need to activate a stroke alert. Symptoms could be related to a TIA especially as family reports she has a past history of CVA. However the patient states that he was having weakness and difficulty standing secondary to pain. She does have redness to the dorsal aspects of bilateral hands and this could be related to gout versus cellulitis versus osteomyelitis. Secondary to this basic labs and imaging studies were obtained as well as a CTA because of her reported history of weakness and potential TIA. Her white count is elevated at 20.6 she also elevation to her ESR and CRP but her lactic acid is normal. Based on these elevations blood cultures were obtained and she was started on vancomycin and Zosyn. X-rays revealed no acute bony abnormalities to suggest osteomyelitis or pneumonia. CTA revealed no large vessel occlusion or signs of significant stenosis and during her entire ER stay stroke scale score remains 0. At this time patient's vitals are stable and the work-up reveals no obvious source of infection. There is potential this is an autoimmune disease or that she could have bilateral hand cellulitis but to get that type of infection in the same location at the same time will be extremely rare. At this time the patient is still requesting transfer to [facility]. Based on history she has had a TIA and therefore she could qualify for possible admission to further work this up. Also based on her lab abnormalities she may require further antibiotics and observation. Therefore [facility] will be contacted to discuss possible transfer. Patient and daughter were informed that there is no guarantee they will be accepted. Both patient and daughter state that if they are not excepted to [facility] they will return home as there is no signs of sepsis or osteomyelitis at this time History & Record Review Discussion w/independent historian: Patient and Family Lab Data Attestation: I reviewed the patient's lab results. Labs: Laboratory Results - last 24 hr 09/11/22 09/11/22 09/11/22 03:20 03:20 04:00 WBC 20.6 H RBC 3.65 L Hgb 10.7 L Hct 31.9 L MCV 87.4 MCH 29.3 MCHC 33.5 RDW Std Deviation 45.9 H RDW Coeff of Elliott 14.2 Plt Count 369 MPV 9.8 Immature Gran % (Auto) 0.500 Neut % (Auto) 78.6 H Lymph % (Auto) 9.0 L [place] % (Auto) 11.7 H Eos % (Auto) 0.0 Baso % (Auto) 0.2 Absolute Neuts (auto) 16.2 H Absolute Lymphs (auto) 1.86 Nucleated RBC % 0 Diff Path Review May foll ESR 67 H Sodium 136 Potassium 3.5 Chloride 99 Carbon Dioxide 31.0 Anion Gap 6 BUN 12 Creatinine 1.00 Estim Creat Clear Calc 32.23 Est GFR (MDRD) Af Amer 69 Est GFR (MDRD) Non-Af 57 L BUN/Creatinine Ratio 12.0 Glucose 121 H Lactic Acid 0.9 Calcium 8.9 Magnesium 2.1 C-React Prot Ext Range 261.00 H Urine Color Urine Clarity Urine pH Ur Specific [place] Urine Protein Urine Glucose (UA) Urine Ketones Urine Occult Blood Urine Nitrite Urine Bilirubin Urine Urobilinogen Ur Leukocyte Esterase Urine RBC Urine WBC Ur Squamous Epith Cells Urine Bacteria Urine Mucus 09/11/22 04:15 WBC RBC Hgb Hct MCV MCH MCHC RDW Std Deviation RDW Coeff of Elliott Plt Count MPV Immature Gran % (Auto) Neut % (Auto) Lymph % (Auto) [place] % (Auto) Eos % (Auto) Baso % (Auto) Absolute Neuts (auto) Absolute Lymphs (auto) Nucleated RBC % Diff Path Review ESR Sodium Potassium Chloride Carbon Dioxide Anion Gap BUN Creatinine Estim Creat Clear Calc Est GFR (MDRD) Af Amer Est GFR (MDRD) Non-Af BUN/Creatinine Ratio Glucose Lactic Acid Calcium Magnesium C-React Prot Ext Range Urine Color Yellow Urine Clarity Clear Urine pH 6.0 Ur Specific [place] 1.015 Urine Protein 30 H Urine Glucose (UA) Normal Urine Ketones 5 H Urine Occult Blood 10 H Urine Nitrite Negative Urine Bilirubin 1 H Urine Urobilinogen 1 H Ur Leukocyte Esterase 25 H Urine RBC 0 SEEN Urine WBC 0-5 SEEN Ur Squamous Epith Cells 0-5 SEEN Urine Bacteria RARE Urine Mucus 1+ Radiography Diagnostic Testing: Clinical Impression(s) from Imaging Studies Hand X-Ray 09/11/22 03:49 IMPRESSION: 1. No acute abnormalities identified involving the left hand. 2. Severe degenerative changes of the first carpometacarpal joint as well as the PIP and DIP joints of the second finger. Electronically Signed: Luis A Riojas MD at 5:45 EDT , Head/Neck CTA 09/11/22 03:50 IMPRESSION: CT ANGIOGRAPHY HEAD AND NECK WITH INTRAVENOUS CONTRAST: 1. No large vessel occlusion, dissection, or other acute arterial abnormality identified on the CTA head/neck. 2. Mild stenosis of the proximal right ICA. CT HEAD WITHOUT INTRAVENOUS CONTRAST: 1. No acute intracranial abnormalities. 2. Age-related changes. Electronically Signed: Luis A Riojas MD at 5:42 EDT Reading Location ID and State: [facility] / [place] Tel , Service support , Hand X-Ray 09/11/22 03:53 IMPRESSION: 1. No acute abnormalities identified involving the right hand. 2. Severe degenerative changes of the first carpometacarpal joint as well as the PIP and DIP joints of the second and third fingers. Electronically Signed: Luis A Riojas MD at 5:46 EDT Reading Location ID and State: [facility] / [place] Tel , Service support , Chest X-Ray 09/11/22 04:28 IMPRESSION: No acute findings in the chest. Electronically Signed: Luis A Riojas MD at 5:49 EDT Reading Location ID and State: [facility] / [place] Tel , Service support , Foot X-Ray 09/11/22 05:15 IMPRESSION: 1. No acute abnormalities identified involving the right foot. 2. Mild degenerative changes of the interphalangeal joints. Electronically Signed: Luis A Riojas MD at 5:42 EDT Reading Location ID and State: [facility] / [place] Tel , Service support , X-ray of bilateral hands as interpreted by the emergency medicine physician reveals no acute fracture dislocation or signs of osteomyelitis Right foot x-ray as interpreted by the emergency medicine physician reveals mild arthritic changes without acute fracture or dislocation Chest x-rays interpreted by the emergency medicine physician reveals no acute infiltrate pneumothorax or pleural effusion Discharge Plan Triage Chief Complaint: Weakness ED Provider: Jaquan Butt Dx/Rx/DC Orders Clinical Impression: TIA (transient ischemic attack), Chronic pain, Leukocytosis Instructions: ED TIA: Transient Ischemic Attack, ED Weakness (Uncertain Cause) Prescriptions: No Action fluoxetine 40 MG capsule 40 mg PO DAILY donepezil 5 MG tablet 5 mg PO QHS albuterol sulfate 2.5 MG/3 ML solution for nebulization 2.5 mg inhalation Q4H PRN PRN (Reason: Shortness Of Breath) loperamide 2 MG capsule 2 mg PO 4X/DAY PRN PRN (Reason: Constipation) hydroxyzine pamoate [Vistaril] 50 MG capsule 50 mg PO TID PRN PRN (Reason: Itching) zafirlukast 20 MG tablet 20 mg PO BID mupirocin 1 APPLIC ointment 1 applic topical TID mirtazapine 15 MG tablet 15 mg PO QHS albuterol sulfate [ProAir HFA] 1 PUFF inhaler 1 - 2 puff inhalation Q6H PRN PRN (Reason: Shortness Of Breath) ondansetron 4 MG tablet 4 mg PO Q8H PRN PRN (Reason: Nausea) cholecalciferol (vitamin D3) 50,000 UNIT capsule 50,000 unit PO QWEEK doxepin [Silenor] 3 MG tablet 3 mg PO DAILY acetaminophen 325 mg Tablet 325 mg PO PRN PRN (Reason: Pain) dextromethorphan-guaifenesin 10-200 mg/5 mL Liquid 5 ml PO Q6H PRN (Reason: Cough) diclofenac sodium 1 % Gel 1 ea TOPICAL 4X/DAY PRN PRN (Reason: Pain) [place] Heartburn 1,940-1,000 mg Tablet, Effervescent 1 ea PO 4X/DAY PRN PRN (Reason: Heartburn) oxybutynin chloride 10 mg tablet extended release 24hr 10 mg PO DAILY triamcinolone acetonide 0.1 % Cream 1 applic TOPICAL BID oxycodone 15 mg tablet 15 mg PO 4X/DAY PRN PRN (Reason: Pain) hydrocortisone 1 % Cream 1 applic TOPICAL BID pantoprazole 40 mg tablet,delayed release (DR/EC) 40 mg PO DAILY fluticasone propionate 50 mcg/actuation spray,suspension 2 spray INTRANASAL DAILY Label Comments: USE 2 (TWO) SPRAYS IN EACH NOSTRIL ONCE DAILY Triple Antibiotic 3.5-400-5,000 [id number] Ointment In Packet 1 applic TOPICAL TID [place] Triple Action 0.5-5 % Lotion 1 ea TOPICAL BID guaifenesin 600 mg Tablet Extended Release 12hr 1,200 mg PO BID fluticasone furoate-vilanterol [Breo Ellipta] 200-25 mcg/dose blister with device 1 inh INHALATION DAILY naloxone 4 mg/actuation [place],Non-Aerosol 1 spray INTRANASAL Q3M PRN (Reason: Overdose) Rx Instructions: spray 1 dose into ONE nostril; alternate nostrils w each dose until help arrives Primary Care Provider: Roland Hall Referrals: Roland Hall MD [[facility]] - Activity Restrictions/Additional Instructions: Please follow-up with your family doctor for repeat evaluation and discuss possible referral to a automobile dealer as your laboratory studies indicate you may have an autoimmune disease. If you have any further concerns please return the hospital for repeat evaluation
--- NOTE | 2022-09-11 03:49 | RAD_ITS ---
EXAM: XR LEFT HAND COMPLETE, 3 OR MORE VIEWS CLINICAL INDICATION: pain TECHNIQUE: Frontal, lateral and oblique views of the left hand. COMPARISON: No relevant prior studies available. FINDINGS: BONES/JOINTS: Severe degenerative changes of the first carpometacarpal joint as well as the PIP and DIP joints of the second finger. No acute fracture. No subluxation. Normal alignment. No sclerotic or destructive changes observed. SOFT TISSUES: Unremarkable. No soft tissue swelling or gas. No radiopaque foreign body. RAD/Hand Min 3 Views IMPRESSION: 1. No acute abnormalities identified involving the left hand. 2. Severe degenerative changes of the first carpometacarpal joint as well as the PIP and DIP joints of the second finger. Electronically Signed: Luis A Riojas MD at 5:45 EDT ,
--- NOTE | 2022-09-11 03:50 | CT_ITS ---
EXAM: CT ANGIOGRAPHY HEAD AND NECK WITH INTRAVENOUS CONTRAST CLINICAL INDICATION: TIA TECHNIQUE: [place]/head and neck CT angiography protocol performed with intravenous contrast. This CT exam was performed using one or more of the following dose reduction techniques: automated exposure control, adjustment of the mA and/or kV according to patient size, and/or use of iterative reconstruction technique. MIP reconstructed images were created and reviewed. CONTRAST: IV 100mL Isovue-370 COMPARISON: No relevant prior studies available. FINDINGS: HEAD: RIGHT ANTERIOR CEREBRAL ARTERY: Unremarkable. No significant stenosis at the visualized segments. Anterior communicating artery is present. No aneurysm. RIGHT MIDDLE CEREBRAL ARTERY: Unremarkable. No significant stenosis at the visualized segments. No aneurysm. RIGHT POSTERIOR CEREBRAL ARTERY: Primarily supplied by the right ICA circulation, normal variant. No occlusion or significant stenosis. No aneurysm. RIGHT INTRACRANIAL INTERNAL CAROTID ARTERY: Unremarkable. No significant stenosis. No dissection or occlusion. RIGHT INTRACRANIAL VERTEBRAL ARTERY: Unremarkable. No significant stenosis. No dissection or occlusion. LEFT ANTERIOR CEREBRAL ARTERY: Unremarkable. No significant stenosis at the visualized segments. No aneurysm. LEFT MIDDLE CEREBRAL ARTERY: Unremarkable. No significant stenosis at the visualized segments. No aneurysm. LEFT POSTERIOR CEREBRAL ARTERY: Primarily supplied by the left ICA circulation, normal variant. No occlusion or significant stenosis. No aneurysm. LEFT INTRACRANIAL INTERNAL CAROTID ARTERY: Unremarkable. No significant stenosis. No dissection or occlusion. LEFT INTRACRANIAL VERTEBRAL ARTERY: Unremarkable. No significant stenosis. No dissection or occlusion. BASILAR ARTERY: Unremarkable. No significant stenosis. No aneurysm. OTHER VASCULATURE: No vascular malformation. NECK: RIGHT COMMON CAROTID ARTERY: Unremarkable. No significant stenosis. No dissection or occlusion. RIGHT EXTRACRANIAL INTERNAL CAROTID ARTERY: Calcifications with mild stenosis of the proximal right ICA, 20%. No dissection or occlusion. RIGHT EXTERNAL CAROTID ARTERY: Unremarkable. No occlusion. RIGHT EXTRACRANIAL VERTEBRAL ARTERY: Unremarkable. No significant stenosis. No dissection or occlusion. LEFT COMMON CAROTID ARTERY: Unremarkable. No significant stenosis. No dissection or occlusion. LEFT EXTRACRANIAL INTERNAL CAROTID ARTERY: Unremarkable. No significant stenosis. No dissection or occlusion. LEFT EXTERNAL CAROTID ARTERY: Unremarkable. No occlusion. LEFT EXTRACRANIAL VERTEBRAL ARTERY: Unremarkable. No significant stenosis. No dissection or occlusion. BRACHIOCEPHALIC AND SUBCLAVIAN ARTERIES: Unremarkable as visualized. No occlusion or significant stenosis. LUNG APICES: Unremarkable as visualized. HEAD and NECK: BONES/JOINTS: Degenerative changes of the cervical spine. No discrete lytic or blastic abnormalities. SOFT TISSUES: Unremarkable. CAROTID STENOSIS REFERENCE USING NASCET CRITERIA: % ICA stenosis = (1 - narrowest ICA diameter/diameter of distal cervical ICA) x 100. Mild - <50% stenosis. Moderate - 50-69% stenosis. Severe - 70-94% stenosis. Near occlusion - 95-99% stenosis. Occluded - 100% stenosis. * A single impression for all exams can be found at the end of this report EXAM: CT HEAD WITHOUT INTRAVENOUS CONTRAST CLINICAL INDICATION: TIA TECHNIQUE: Multiple axial images were obtained of the head without intravenous contrast. This CT exam was performed using one or more of the following dose reduction techniques: automated exposure control, adjustment of the mA and/or kV according to patient size, and/or use of iterative reconstruction technique. CONTRAST: IV 100mL Isovue-370 COMPARISON: No relevant prior studies available. FINDINGS: BRAIN AND EXTRA-AXIAL SPACES: Diffuse cerebral volume loss. Periventricular small vessel ischemic changes. No intra- or extra-axial hemorrhage. No intracranial mass or mass effect. Posterior fossa structures are unremarkable. No hydrocephalus. Basal cisterns are patent. BONES/JOINTS: Unremarkable. No discrete lytic or blastic abnormalities. VASCULATURE: Vascular calcifications. SINUSES: Right maxillary sinus disease. MASTOID AIR CELLS: Prior surgical changes of the right mastoid air cells. ORBITS: Visualized globes, extraocular muscles, optic nerves and retrobulbar fat appear unremarkable. * A single impression for all exams can be found at the end of this report CT/CTA Head AND Neck W/ Contrast IMPRESSION: CT ANGIOGRAPHY HEAD AND NECK WITH INTRAVENOUS CONTRAST: 1. No large vessel occlusion, dissection, or other acute arterial abnormality identified on the CTA head/neck. 2. Mild stenosis of the proximal right ICA. CT HEAD WITHOUT INTRAVENOUS CONTRAST: 1. No acute intracranial abnormalities. 2. Age-related changes. Electronically Signed: Luis A Riojas MD at 5:42 EDT Reading Location ID and State: [facility] / [place] Tel , Service support ,
--- NOTE | 2022-09-11 03:53 | RAD_ITS ---
EXAM: XR RIGHT HAND COMPLETE, 3 OR MORE VIEWS CLINICAL INDICATION: pain TECHNIQUE: Frontal, lateral and oblique views of the right hand. COMPARISON: No relevant prior studies available. FINDINGS: BONES/JOINTS: Severe degenerative changes of the first carpometacarpal joint as well as the PIP and DIP joints of the second and third fingers. No acute fracture. SOFT TISSUES: Unremarkable. No soft tissue swelling or gas. No radiopaque foreign body. RAD/Hand Min 3 Views IMPRESSION: 1. No acute abnormalities identified involving the right hand. 2. Severe degenerative changes of the first carpometacarpal joint as well as the PIP and DIP joints of the second and third fingers. Electronically Signed: Luis A Riojas MD at 5:46 EDT ,
[2022-09-11] MEDS: Ondansetron 4 MG/2 ML Vial IV (04:03)
[2022-09-11 04:05] LABS: Absolute Lymphocyte Count 1.86 X10^3/uL (0.83-4.51); Absolute Neutrophil Count 16.2 X10^3/uL (2.0-7.7); Basophil# 0.05 X10^3/uL; Basophil% 0.2 % (0-1); Eosinophil# 0.01 X10^3/uL; Hematocrit 31.9 % (37-47); Hemoglobin 10.7 g/dL (12.0-15.0); Lymphocyte # 1.86 X10^3/ul (0.83-4.51); Mean Corp Hgb Conc 33.5 g/dL (32-36); Mean Corpuscular Hgb 29.3 pg (27.0-32.0); Mean Corpuscular Volume 87.4 fL (81-99); Mean Platelet Vol. 9.8 fl (6.2-12.0); Monocyte# 2.41 X10^3/uL; Monocyte% 11.7 % (0-10); NRBC Flagged by Analyzer 0 % (0-5); Neutrophil # 16.17 X10^3/uL (2.7-7.7); Neutrophil % 78.6 % (47-70); POSITIVE DIFFERENTIAL YES; Platelet Count 369 K/mm3 (150-450); RBC Distribution Width CV 14.2 % (11.6-14.6); RBC Distribution Width SD 45.9 fl (35.1-43.9); Red Blood Count 3.65 M/mm3 (4.2-5.4); White Blood Count 20.6 K/mm3 (4.4-11.0)
[2022-09-11] MEDS: HYDROmorphone 0.5 MG/0.5 ML SYRINGE IV (04:13)
[2022-09-11 04:14] VITALS: BP 113/59; PULSE 79; RESP 13; O2SAT 93
[2022-09-11 04:21] LABS: Differential Indicated SCAN CRITERIA MET
[2022-09-11 04:22] LABS: Red Blood Cells-Urine 0 SEEN /hpf (0-5)
[2022-09-11 04:26] LABS: Color, Urine Yellow (Yellow); Glucose, Dipstick Normal (Normal); Ketone-Dipstick 5 mg/dl (Negative); Leukocyte Esterase-Dipstick 25 /ul (Negative); Nitrite-Dipstick Negative (Negative); Occult Blood-Urine 10 /ul (Negative); Protein-Dipstick 30 mg/dl (Negative); Specific Gravity, Urine 1.015 (1.002-1.030); Urine Clarity Clear (Clear); Urine Urobilinogen 1 mg/dl (Normal)
--- NOTE | 2022-09-11 04:28 | RAD_ITS ---
EXAM: XR CHEST, 1 VIEW CLINICAL INDICATION: weakness TECHNIQUE: Frontal view of the chest. COMPARISON: 12/04/2019. FINDINGS: LUNGS AND PLEURAL SPACES: Unremarkable. No consolidation or edema. No pneumothorax. No effusion. HEART: Unremarkable. Cardiac silhouette not enlarged. MEDIASTINUM: Central airways and mediastinal contour are unremarkable. BONES/JOINTS: Degenerative changes of the spine with dextrocurvature. SOFT TISSUES: Unremarkable. RAD/Chest 1 View (Portable) IMPRESSION: No acute findings in the chest. Electronically Signed: Luis A Riojas MD at 5:49 EDT ,
[2022-09-11 04:32] LABS: Lactic Acid 0.9 mmol/L (0.4-1.9)
[2022-09-11 04:35] LABS: Urine Bilirubin Dipstick 1 mg/dL (Negative)
[2022-09-11 04:36] LABS: Bacteria RARE /hpf (None Seen); Mucous, Urine 1+ /hpf (<or=2+); Squamous Epithelial Cells - UA 0-5 SEEN /hpf (5-10); White Blood Cells 0-5 SEEN /hpf (0-5)
[2022-09-11 04:43] LABS: Erythrocyte Sedimentation Rate 67 mm/hr (0-30)
[2022-09-11 04:45] LABS: Anion Gap 6 (5-15); BUN 12 mg/dL (7-18); Calcium,Total 8.9 mg/dL (8.5-10.1); Chloride 99 mmol/L (98-107); EST Glomerular Filtration Rate 57 mL/min (>60); Est Glom Filt Rate - Afr Amer 69 mL/min (>60); Estimated Creatinine Clearance 32.23 ml/min; Glucose 121 mg/dL (74-106); Magnesium 2.1 mg/dL (1.6-2.6); Potassium 3.5 mmol/L (3.5-5.1); Sodium Level 136 mmol/L (136-145)
--- NOTE | 2022-09-11 05:15 | RAD_ITS ---
EXAM: XR RIGHT FOOT COMPLETE, 3 OR MORE VIEWS CLINICAL INDICATION: pain TECHNIQUE: Frontal, lateral and oblique views of the right foot. COMPARISON: No relevant prior studies available. FINDINGS: BONES/JOINTS: Mild degenerative changes of the interphalangeal joints. No acute fracture. No subluxation. Normal alignment. No sclerotic or destructive changes observed. SOFT TISSUES: Unremarkable. No soft tissue swelling or gas. No radiopaque foreign body. RAD/Foot min 3 Views IMPRESSION: 1. No acute abnormalities identified involving the right foot. 2. Mild degenerative changes of the interphalangeal joints. Electronically Signed: Luis A Riojas MD at 5:42 EDT ,
[2022-09-11] MEDS: fentaNYL 100 MCG/2 ML Ampul 25 MCG IV (05:53)
[2022-09-11 06:00] VITALS: BP 100/77; PULSE 83; RESP 16; O2SAT 94
[2022-09-11] MEDS: Vancomycin IV 1,000 MG/200 ML BAG 200 MG IV (06:43)
[2022-09-11 08:21] VITALS: BP 109/57; PULSE 80; RESP 16; O2SAT 94
[2022-09-12 12:07] LABS: Pathologist Review Reviewed
== END 2022-09-11 08:56 | disposition home or self-care (01) ==
PROVIDERS: Emergency Provider Emergency Medicine; PCP Family Medicine; Visit Provider Emergency Medicine
DX: G45.9 Transient cerebral ischemic attack, unspecified (principal); J44.9 Chronic obstructive pulmonary disease, unspecified; F31.9 Bipolar disorder, unspecified; E78.5 Hyperlipidemia, unspecified; D72.829 Elevated white blood cell count, unspecified; F17.210 Nicotine dependence, cigarettes, uncomplicated; G89.29 Other chronic pain; Z79.51 Long term (current) use of inhaled steroids
CPT/HCPCS: 36415; 70496; 70498; 71045; 73130; 73630; 80048; 81001; 83605; 83735; 85025; 85652; 86140; 87040; 93005; 96361; 96365; 96368; 96375; 99285; J7030; Q9967; A4216; J2405

== ENCOUNTER 2022-10-01 01:48 | Emergency (ER) | payer MEDICARE, MEDICAID, SELFPAY ==
[2022-10-01 01:48] VITALS: BP 152/78; PULSE 81; RESP 15; TEMP 36.2; O2SAT 95; BMI 29.3
--- NOTE | 2022-10-01 02:16 | RAD_ITS ---
EXAM: XR RIGHT ELBOW COMPLETE, 3 OR MORE VIEWS CLINICAL INDICATION: pain TECHNIQUE: Frontal, lateral and oblique views of the right elbow. COMPARISON: No relevant prior studies available. FINDINGS: BONES/JOINTS: Unremarkable. There is no displacement of the anterior or posterior fat pads. No acute fracture. No subluxation. Normal alignment. Preservation of the joint space. No destructive or sclerotic lesions. SOFT TISSUES: Unremarkable. No soft tissue swelling or gas. No radiopaque foreign body. RAD/Elbow min 3 Views IMPRESSION: Negative right elbow. Electronically Signed: Audi Beasley MD at 3:05 EDT ,
--- NOTE | 2022-10-01 02:16 | RAD_ITS ---
EXAM: XR RIGHT SHOULDER COMPLETE, 2 OR MORE VIEWS CLINICAL INDICATION: fall, pain TECHNIQUE: Two or more views of the right shoulder. COMPARISON: No relevant prior studies available. FINDINGS: BONES/JOINTS: Degenerative changes right shoulder joint. No fracture or dislocation. No sclerotic or destructive changes observed. SOFT TISSUES: Unremarkable. No soft tissue swelling or gas. No radiopaque foreign body. RAD/Shoulder min 2 Views IMPRESSION: Degenerative changes right shoulder joint. No fracture or dislocation. Electronically Signed: Audi Beasley MD at 3:04 EDT ,
--- NOTE | 2022-10-01 02:17 | ED.VIS.FALL ---
HPI HPI - Fall History of Present Illness Chief Complaint: Fall Narrative Narrative: 82-year-old female presents via EMS with fall 3 days ago. She is in pain management but states she is out of her pain pills. She has right shoulder pain. She also complains of a right earache. She has been taking Tylenol without relief. She states that she has her collarbone removed on her right shoulder but is having diffuse pain with movement of her right arm. She states that she fell, but has not been evaluated. She was in the emergency department last week because of weakness. She is here tonight because taking blood pressure medications to help with her pain and because she lost her pain pills. [facility] Medical History Bipolar affective disorder Dizziness Hyperlipidemia IBS (irritable bowel syndrome) Migraine PVD (peripheral vascular disease) Ventral hernia Home Medications albuterol sulfate 2.5 mg/3 mL (0.083 %) solution for nebulization 2.5 mg inhalation Q4H PRN PRN Shortness Of Breath 07/30/18 [History Last Taken Unknown] albuterol sulfate 90 mcg/actuation aerosol inhaler (ProAir HFA) 1 - 2 puff inhalation Q6H PRN PRN Shortness Of Breath 07/30/18 [History Last Taken Unknown] cholecalciferol (vitamin D3) 1,250 mcg (50,000 unit) capsule 50,000 unit PO QWEEK 07/30/18 [History Last Taken Unknown] donepezil 5 mg tablet 5 mg PO QHS 07/30/18 [History Last Taken Unknown] doxepin 3 mg tablet (Silenor) 3 mg PO DAILY PRN PRN Sleep 07/30/18 [History Last Taken Unknown] fluoxetine 40 mg capsule 40 mg PO DAILY 07/30/18 [History Last Taken Unknown] hydroxyzine pamoate 50 mg capsule (Vistaril) 50 mg PO TID PRN PRN Itching 07/30/18 [History Last Taken Unknown] loperamide 2 mg capsule 2 mg PO 4X/DAY PRN PRN Constipation 07/30/18 [History Last Taken Unknown] mirtazapine 15 mg tablet 15 mg PO QHS 07/30/18 [History Last Taken Unknown] mupirocin 2 % topical ointment 1 applic topical TID 07/30/18 [History Last Taken Unknown] ondansetron 4 mg disintegrating tablet 4 mg PO Q8H PRN PRN Nausea 07/30/18 [History Last Taken Unknown] zafirlukast 20 mg tablet 20 mg PO BID 07/30/18 [History Last Taken Unknown] acetaminophen 325 mg tablet 325 mg PO PRN PRN Pain 09/11/22 [History Last Taken Unknown] dextromethorphan-guaifenesin 10 mg-200 mg/5 mL oral liquid 5 ml PO Q6H PRN Cough 09/11/22 [History Last Taken Unknown] diclofenac sodium 1 % topical gel 1 ea topical 4X/DAY PRN PRN Pain 09/11/22 [History Last Taken Unknown] fluticasone furoate 200 mcg-vilanterol 25 mcg/dose inhalation powder (Breo Ellipta) 1 inh inhalation DAILY 09/11/22 [History Last Taken Unknown] fluticasone propionate 50 mcg/actuation nasal spray,suspension 2 spray intranasal DAILY 09/11/22 [History Last Taken Unknown] guaifenesin 600 mg tablet, extended release 12 hr 1,200 mg PO BID 09/11/22 [History Last Taken Unknown] hydrocortisone 1 % topical cream 1 applic topical BID 09/11/22 [History Last Taken Unknown] [id number] vera-vit E 0.5 %-5 % lotion 1 ea topical BID 09/11/22 [History Last Taken Unknown] naloxone 4 mg/actuation nasal spray 1 spray intranasal Q3M PRN Overdose 09/11/22 [History Last Taken Unknown] neomycin-bacitracn Zn-polymyxn 3.5 mg-400 unit-5,000 unit top oint pkt (Triple Antibiotic) 1 applic topical TID 09/11/22 [History Last Taken Unknown] oxybutynin chloride 10 mg tablet,extended release 24 hr 10 mg PO DAILY 09/11/22 [History Last Taken Unknown] oxycodone 15 mg tablet 15 mg PO 4X/DAY PRN PRN Pain 09/11/22 [History Last Taken Unknown] pantoprazole 40 mg tablet,delayed release 40 mg PO DAILY 09/11/22 [History Last Taken Unknown] sodium bicarbonate-citric acid 1,940 mg-1,000 mg effervescent tablet 1 ea PO 4X/DAY PRN PRN Heartburn 09/11/22 [History Last Taken Unknown] triamcinolone acetonide 0.1 % topical cream 1 applic topical BID 09/11/22 [History Last Taken Unknown] Allergy/AdvReac Type Severity Reaction Status Date / Time acetaminophen [From Vicodin] Allergy Unknown Verified 10/01/22 01:55 aspirin Allergy Unknown Verified 10/01/22 01:55 cat dander Allergy PT UNSURE Verified 10/01/22 01:55 OF REACTION gabapentin Allergy Itching Verified 10/01/22 01:55 hydrocodone bitartrate Allergy Unknown Verified 10/01/22 01:55 [From Vicodin] Sulfa (Sulfonamide Allergy Unknown Verified 10/01/22 01:55 Antibiotics) fexofenadine [From Anna] AdvReac Itching Verified 10/01/22 01:55 morphine AdvReac Other Verified 10/01/22 01:55 sertraline [From Zoloft] AdvReac Diarrhea Verified 10/01/22 01:55 Social History Smoking Status: Current some day smoker tobacco type: cigarettes ROS ROS ED ROS Narrative Constitutional: No fever, no chills. HEENT: No sore throat. No neck pain. No loss of vision. No rhinorrhea. Cardiovascular: No chest pain. No palpitations. No pedal edema. Respiratory: No cough, no shortness of breath. Abdominal: No abdominal pain. No nausea. No vomiting. Genitourinary: No dysuria. No hematuria. Musculoskeletal: No myalgias. Right shoulder and arm pain secondary to fall remotely 3 days ago. Neurologic: No headaches. No dizziness. No lightheadedness. Skin: No rash. No change in color. Psychiatric: No depression. No anxiety. EXAM Physical Exam Narrative Exam Narrative: Afebrile. Vital signs noted. HEENT: Normocephalic. Atraumatic. PERRL, EOMI. Neck soft and supple. No point tenderness or step off. Cardiovascular: Regular rate and rhythm. No murmurs, rubs, or gallops appreciated. Respiratory: No tachypnea. Lungs clear to auscultation bilaterally. Gastrointestinal: Abdomen soft, nontender, with normoactive bowel sounds. No rebound or guarding. Neurological: Awake. Alert. Nonfocal, nonlateralizing. Skin: No rash. Normal color. No pallor. Musculoskeletal: No pedal edema. Decreased range of motion right shoulder secondary to subjective pain. Neurovascular intact distally with palpable radial pulse. Full range of motion of wrist and fingers. Const Vital Signs: 10/01/22 01:48 10/01/22 03:42 10/01/22 02:48 Temperature 97.2 F L Temperature Source Temporal Pulse Rate 81 Respiratory Rate 15 18 Respiratory Effort Normal Non-Labored Respiratory Depth Normal Respiratory Pattern Normal Blood Pressure 152/78 H Blood Pressure Mean 102 Pulse Ox 95 Oxygen Delivery Method Room Air Room Air MDM MDM MDM Narrative Medical decision making narrative: I reviewed the patient's prior records. I do not feel CT of the brain or neck is indicated. She states she is having pain in her posterior shoulder area. I told her she could not have her pain pills refilled as she is in pain management she began to be upset, stating she was just relating history that she lost her pain medications and is taking her blood pressure medication. I will obtain x-rays of the right shoulder and elbow. She complained of right ear pain so I inspected her TM on the right and see no evidence of erythema. I do not feel antibiotics are indicated. Additionally, I reviewed and interpreted her x-rays of her right shoulder and elbow and see no evidence of acute fracture. I reviewed the radiology report which confirms my independent interpretation. At this point in time, I do feel she can be discharged safely home to follow-up with her primary care provider. It was reported by radiology technicians that she was concerned for an aneurysm. Currently, she is neurovascularly intact distally with palpable pulses on the right arm/wrist. I do not feel that emergent CT imaging is indicated, I do not feel that emergent ultrasound is indicated. She can follow-up with her primary care provider as an outpatient. Disposition is discharged home in stable condition. Radiography Diagnostic Testing: Clinical Impression(s) from Imaging Studies Elbow X-Ray 10/01/22 02:16 IMPRESSION: Negative right elbow. Electronically Signed: Audi Beasley MD at 3:05 EDT , Shoulder X-Ray 10/01/22 02:16 IMPRESSION: Degenerative changes right shoulder joint. No fracture or dislocation. Electronically Signed: Audi Beasley MD at 3:04 EDT , Discharge Plan Triage Chief Complaint: Fall ED Provider: Costa Bach Dx/Rx/DC Orders Clinical Impression: Fall, Pain in right shoulder Instructions: ED Arthralgia, ED Fall with Uncertain Cause, ED Pain, Acute, Uncertain Cause Prescriptions: No Action fluoxetine 40 MG capsule 40 mg PO DAILY donepezil 5 MG tablet 5 mg PO QHS albuterol sulfate 2.5 MG/3 ML solution for nebulization 2.5 mg inhalation Q4H PRN PRN (Reason: Shortness Of Breath) loperamide 2 MG capsule 2 mg PO 4X/DAY PRN PRN (Reason: Constipation) hydroxyzine pamoate [Vistaril] 50 MG capsule 50 mg PO TID PRN PRN (Reason: Itching) zafirlukast 20 MG tablet 20 mg PO BID mupirocin 1 APPLIC ointment 1 applic topical TID mirtazapine 15 MG tablet 15 mg PO QHS albuterol sulfate [ProAir HFA] 1 PUFF inhaler 1 - 2 puff inhalation Q6H PRN PRN (Reason: Shortness Of Breath) ondansetron 4 MG tablet 4 mg PO Q8H PRN PRN (Reason: Nausea) cholecalciferol (vitamin D3) 50,000 UNIT capsule 50,000 unit PO QWEEK doxepin [Silenor] 3 MG tablet 3 mg PO DAILY PRN PRN (Reason: Sleep) acetaminophen 325 mg Tablet 325 mg PO PRN PRN (Reason: Pain) dextromethorphan-guaifenesin 10-200 mg/5 mL Liquid 5 ml PO Q6H PRN (Reason: Cough) diclofenac sodium 1 % Gel 1 ea TOPICAL 4X/DAY PRN PRN (Reason: Pain) [place] Heartburn 1,940-1,000 mg Tablet, Effervescent 1 ea PO 4X/DAY PRN PRN (Reason: Heartburn) oxybutynin chloride 10 mg tablet extended release 24hr 10 mg PO DAILY triamcinolone acetonide 0.1 % Cream 1 applic TOPICAL BID oxycodone 15 mg tablet 15 mg PO 4X/DAY PRN PRN (Reason: Pain) hydrocortisone 1 % Cream 1 applic TOPICAL BID pantoprazole 40 mg tablet,delayed release (DR/EC) 40 mg PO DAILY fluticasone propionate 50 mcg/actuation spray,suspension 2 spray INTRANASAL DAILY Label Comments: USE 2 (TWO) SPRAYS IN EACH NOSTRIL ONCE DAILY Triple Antibiotic 3.5-400-5,000 [id number] Ointment In Packet 1 applic TOPICAL TID [place] Triple Action 0.5-5 % Lotion 1 ea TOPICAL BID guaifenesin 600 mg Tablet Extended Release 12hr 1,200 mg PO BID fluticasone furoate-vilanterol [Breo Ellipta] 200-25 mcg/dose blister with device 1 inh INHALATION DAILY naloxone 4 mg/actuation [place],Non-Aerosol 1 spray INTRANASAL Q3M PRN (Reason: Overdose) Rx Instructions: spray 1 dose into ONE nostril; alternate nostrils w each dose until help arrives Primary Care Provider: Roland Hall Referrals: Roland Hall MD [Primary Care Provider] - As soon as possible Disposition Disposition: Home, Self Care Discharge Date/Time: 10/01/22 04:25
[2022-10-01 03:42] VITALS: RESP 18
--- NOTE | 2022-10-01 04:19 | NURSING ---
Charge nurse in room to discharge patient and patient stated that she needed a ride. [employer] attempted to arrange transport but non were available until 0600. Updated patient of this. Patient then called out multiple times asking to use the restroom and needed help because she couldn't walk to . [employer] in room with bedside commode. Pt asked when she would leave, [employer] stated we were waiting on a ride, pt rude to staff calling staff a 'smart mouth bitch.' THis RN in room with patient and updated again that pt could call someone to transport her in which she stated she would push her emergency button. Upon going back into room, patient states they told her we needed to contact SW. Informed patient that we do not have SW at this time and the only option is to arrange for a cab but none are available at this time. Pt asked for a wheelchair and when asked what for, patient states that she would go home. This RN stated that she was not able to take our wheelchair home. Pt became angry with this RN stating 'i should have never came here to this [facility], my hospital is [facility], I'm not coming back here.' Again told patient that we would try and find her a ride when the cab companies opened. Pt then ambulated independently out of the ER, steady gait.
== END 2022-10-01 04:25 | disposition home or self-care (01) ==
PROVIDERS: Emergency Provider Emergency Medicine; PCP Family Medicine; Visit Provider Emergency Medicine
DX: M25.511 Pain in right shoulder (principal); E78.5 Hyperlipidemia, unspecified; F17.210 Nicotine dependence, cigarettes, uncomplicated; W19.XXXA Unspecified fall, initial encounter
CPT/HCPCS: 73030; 73080; 99284

== ENCOUNTER → 2023-06-01 | Outpatient (CLI) | payer MEDICARE, MEDICAID, SELFPAY ==
[2023-06-01 18:18] LABS: CRP < 2.90 mg/L (0.0-3.0)
[2023-06-04 16:09] LABS: Endomysial Antibody IgA Negative (Negative); Immunoglobulin A 238 mg/dL (64-422); t-Transglutaminase IgA <2 U/mL (0-3)
== END | disposition home or self-care (01) ==
LOC: MTLAB 17:00
PROVIDERS: PCP Family Medicine; Referring Provider Internal Medicine Gastroenterology; Visit Provider Internal Medicine Gastroenterology
DX: R19.7 Diarrhea, unspecified (principal)
CPT/HCPCS: 36415; 82784; 83516; 86140; 86255

== ENCOUNTER 2024-11-05 17:14 | Emergency (ER) | payer MEDICARE, MEDICAID, SELFPAY ==
[2024-11-05 17:14] VITALS: BP 140/78; PULSE 91; RESP 18; TEMP 37; O2SAT 96
[2024-11-05 17:15] VITALS: BMI 33.4
--- NOTE | 2024-11-05 19:47 | EX.ED.GENINJ ---
HPI History of Present Illness Chief Complaint: Laceration [facility] Medical History Bipolar affective disorder Dizziness Hyperlipidemia IBS (irritable bowel syndrome) Migraine PVD (peripheral vascular disease) Ventral hernia Home Medications Medication Instructions Recorded Last Taken Type albuterol sulfate 2.5 mg/3 mL 2.5 mg inhalation Q4H PRN PRN 07/30/18 Unknown History (0.083 %) solution for nebulization Shortness Of Breath albuterol sulfate 90 mcg/actuation 1 - 2 puff inhalation Q6H PRN PRN 07/30/18 Unknown History aerosol inhaler (ProAir HFA) Shortness Of Breath cholecalciferol (vitamin D3) 1,250 50,000 unit PO QWEEK 07/30/18 Unknown History mcg (50,000 unit) capsule donepezil 5 mg tablet 5 mg PO QHS 07/30/18 Unknown History doxepin 3 mg tablet (Silenor) 3 mg PO DAILY PRN PRN Sleep 07/30/18 Unknown History fluoxetine 40 mg capsule 40 mg PO DAILY 07/30/18 Unknown History hydroxyzine pamoate 50 mg capsule 50 mg PO TID PRN PRN Itching 07/30/18 Unknown History (Vistaril) loperamide 2 mg capsule 2 mg PO 4X/DAY PRN PRN Constipation 07/30/18 Unknown History mirtazapine 15 mg tablet 15 mg PO QHS 07/30/18 Unknown History mupirocin 2 % topical ointment 1 applic topical TID 07/30/18 Unknown History ondansetron 4 mg disintegrating 4 mg PO Q8H PRN PRN Nausea 07/30/18 Unknown History tablet zafirlukast 20 mg tablet 20 mg PO BID 07/30/18 Unknown History acetaminophen 325 mg tablet 325 mg PO PRN PRN Pain 09/11/22 Unknown History dextromethorphan-guaifenesin 10 5 ml PO Q6H PRN Cough 09/11/22 Unknown History mg-200 mg/5 mL oral liquid diclofenac sodium 1 % topical gel 1 ea topical 4X/DAY PRN PRN Pain 09/11/22 Unknown History fluticasone furoate 200 1 inh inhalation DAILY 09/11/22 Unknown History mcg-vilanterol 25 mcg/dose inhalation powder (Breo Ellipta) fluticasone propionate 50 2 spray intranasal DAILY 09/11/22 Unknown History mcg/actuation nasal spray,suspension guaifenesin 600 mg tablet, 1,200 mg PO BID 09/11/22 Unknown History extended release 12 hr hydrocortisone 1 % topical cream 1 applic topical BID 09/11/22 Unknown History [id number] vera-vit 1 ea topical BID 09/11/22 Unknown History E 0.5 %-5 % lotion naloxone 4 mg/actuation nasal spray 1 spray intranasal Q3M PRN Overdose 09/11/22 Unknown History neomycin-bacitracn Zn-polymyxn 3.5 1 applic topical TID 09/11/22 Unknown History mg-400 unit-5,000 unit top oint pkt (Triple Antibiotic) oxybutynin chloride 10 mg 10 mg PO DAILY 09/11/22 Unknown History tablet,extended release 24 hr oxycodone 15 mg tablet 15 mg PO 4X/DAY PRN PRN Pain 09/11/22 Unknown History pantoprazole 40 mg tablet,delayed 40 mg PO DAILY 09/11/22 Unknown History release sodium bicarbonate-citric acid 1 ea PO 4X/DAY PRN PRN Heartburn 09/11/22 Unknown History 1,940 mg-1,000 mg effervescent tablet triamcinolone acetonide 0.1 % 1 applic topical BID 09/11/22 Unknown History topical cream Allergy/AdvReac Type Severity Reaction Status Date / Time acetaminophen (From Vicodin) Allergy Unknown Verified 11/05/24 17:15 aspirin Allergy Unknown Verified 11/05/24 17:15 cat dander Allergy PT UNSURE Verified 11/05/24 17:15 OF REACTION gabapentin Allergy Itching Verified 10/01/22 01:55 hydrocodone bitartrate (From Allergy Unknown Verified 11/05/24 17:15 Vicodin) Sulfa (Sulfonamide Allergy Unknown Verified 11/05/24 17:15 Antibiotics) fexofenadine (From Anna) AdvReac Itching Verified 11/05/24 17:15 morphine AdvReac Other Verified 11/05/24 17:15 sertraline (From Zoloft) AdvReac Diarrhea Verified 11/05/24 17:15 Social History Smoking Status: Current some day smoker tobacco type: cigarettes EXAM Physical Exam Const Vital Signs: 11/05/24 17:14 Temperature 98.6 F Temperature Source Oral Pulse Rate 91 Respiratory Rate 18 Blood Pressure 140/78 H Blood Pressure Mean 98 Pulse Ox 96 Oxygen Delivery Method [place] [facility] [place] Medical decision making narrative: HISTORY OF PRESENT ILLNESS: Chief complaint: Laceration, cough 84-year-old female history of COPD, bipolar affective disorder, hyperlipidemia, IBS presents with concern for finger laceration. This occurred She also states since she is here for finger laceration she would like to be assessed for a cough. REVIEW OF SYSTEMS: Pertinent positives: Finger laceration, cough Pertinent negatives: Shortness of breath, chest pain PHYSICAL EXAM: Nursing triage notes reviewed, Vital signs reviewed Constitutional: please see [facility] HENT: MMM Eyes: Pupils equal round and reactive to light, Extraocular muscles intact Neck: No stridor, no JVD, full neck ROM Lungs: Clear to auscultation, No wheezing or rales. No increased work of breathing, no conversational dyspnea, no accessory muscle use, no nasal flaring. No respiratory distress noted Heart: Regular rate and rhythm, No murmurs, No rubs and No gallops, 2+ distal pulses (radial, femoral, posterior tibial) in all extremities Extremities: No edema, intact tenderness structures and flexion extension of the left index finger. Neuro: Intact 5/5 strength with ok sign (median), intact finger abduction (ulnar) intact wrist extension (radial n). Intact sensation in the radial, ulnar, and median nerve distributions. Skin: 2 cm linear laceration noted to the lateral surface of the second digit. No obvious tendinous involvement noted. No deeper structures involved. Bleeding is controlled. MEDICAL DECISION MAKING: Chief Complaint: please see [facility] External records reviewed: Reviewed the patient's history, allergies, recent ED visits Factors affecting care: As per HPI Social determinants of health: none History obtained from others: none Consults: none [facility] Narrative: The patient was initially hemodynamically stable, afebrile and nontoxic-appearing. Exam laceration noted. Lungs are clear Chest x-ray was read and reviewed personally so show no evidence of obvious pneumonia. Given finger laceration will give doxycycline for prophylactic antimicrobial coverage of MRSA skin bugs as well as pneumonia. The patient suffered lacerations to the left index finger On exam there was no evidence of foreign bodies. There was no evidence of neurovascular injury. Patient had a normal distal vascular exam, and had intact ROM and sensation. There was also no evidence of tendon injury, with normal distal full range of motion, flexion, extension, abduction, abduction. There is no evidence of local joint space involvement at this time. Wound care applied (irrigation and/or local cleansing solution). Laceration repair was then performed please see procedure note. The patient was given signs and symptoms warnings for infection, such as increasing pain, redness, swelling, associated heat, pus or fever. Patient agreed with the plan of care Procedure: Laceration repair. The procedure was performed by myself. Indication: Wound repair Risks and benefits: risks, benefits and alternatives were discussed Consent: Consent was obtained. Wound Details: Approximate 2 cm linear laceration noted to the left index finger. Anesthesia: Topical let, digital block with 1% lidocaine without epinephrine (verbal consent obtained from patient). Wound prep: Patient was prepped and draped in the usual sterile fashion. Tetanus: Updated today Irrigation Solution: Saline Wound Preparation: Soaked in chlorhexidine. Copious irrigation with sterile saline. The wound was explored to its base in a bloodless field. Procedure Description: Applied approximately six 5-0 Chromic Gut sutures with close approximation. Bacitracin dressing applied. Patient tolerated the procedure well with no immediate complications The patient and/or family, caregivers express understanding. The patient and/or family, caregivers agrees with the plan. Shared decision making: I will have a discussion with the patient and or visitors regarding risk/benefits of further testing or admission. They will be made aware of of the risk/benefits inherent in this decision they will be given the opportunity to voice understanding. Total critical care time today provided was at least 0 minutes. This excludes separately billable procedures. Critical care time (if documented) is secondary to the patient having high probability of clinically significant/life threatening deterioration in the patient's condition which required my urgent intervention. Impression: 1. Left finger laceration 2. Cough Dispo: Discharge home This note was generated with [employer] dictation software. It may contain incorrect words, spelling, and punctuation that were not noted in review of the chart prior to signing. Radiography Diagnostic Testing: Clinical Impression(s) from Imaging Studies Chest X-Ray 11/05/24 20:13 IMPRESSION: No acute cardiopulmonary process. Reading Location: [facility] Discharge Plan Triage Chief Complaint: Laceration ED Provider: Cody Juares Dx/Rx/DC Orders Prescriptions: No Action fluoxetine 40 MG capsule 40 mg PO DAILY donepezil 5 MG tablet 5 mg PO QHS albuterol sulfate 2.5 MG/3 ML solution for nebulization 2.5 mg inhalation Q4H PRN PRN (Reason: Shortness Of Breath) loperamide 2 MG capsule 2 mg PO 4X/DAY PRN PRN (Reason: Constipation) hydroxyzine pamoate [Vistaril] 50 MG capsule 50 mg PO TID PRN PRN (Reason: Itching) zafirlukast 20 MG tablet 20 mg PO BID mupirocin 1 APPLIC ointment 1 applic topical TID mirtazapine 15 MG tablet 15 mg PO QHS albuterol sulfate [ProAir HFA] 1 PUFF inhaler 1 - 2 puff inhalation Q6H PRN PRN (Reason: Shortness Of Breath) ondansetron 4 MG tablet 4 mg PO Q8H PRN PRN (Reason: Nausea) cholecalciferol (vitamin D3) 50,000 UNIT capsule 50,000 unit PO QWEEK doxepin [Silenor] 3 MG tablet 3 mg PO DAILY PRN PRN (Reason: Sleep) acetaminophen 325 mg Tablet 325 mg PO PRN PRN (Reason: Pain) dextromethorphan-guaifenesin 10-200 mg/5 mL Liquid 5 ml PO Q6H PRN (Reason: Cough) diclofenac sodium 1 % Gel 1 ea TOPICAL 4X/DAY PRN PRN (Reason: Pain) [place] Heartburn 1,940-1,000 mg Tablet, Effervescent 1 ea PO 4X/DAY PRN PRN (Reason: Heartburn) oxybutynin chloride 10 mg tablet extended release 24hr 10 mg PO DAILY triamcinolone acetonide 0.1 % Cream 1 applic TOPICAL BID oxycodone 15 mg tablet 15 mg PO 4X/DAY PRN PRN (Reason: Pain) hydrocortisone 1 % Cream 1 applic TOPICAL BID pantoprazole 40 mg tablet,delayed release (DR/EC) 40 mg PO DAILY fluticasone propionate 50 mcg/actuation spray,suspension 2 spray INTRANASAL DAILY Patient Comments: USE 2 (TWO) SPRAYS IN EACH NOSTRIL ONCE DAILY Triple Antibiotic 3.5-400-5,000 [id number] Ointment In Packet 1 applic TOPICAL TID [place] Triple Action 0.5-5 % Lotion 1 ea TOPICAL BID guaifenesin 600 mg Tablet Extended Release 12hr 1,200 mg PO BID fluticasone furoate-vilanterol [Breo Ellipta] 200-25 mcg/dose blister with device 1 inh INHALATION DAILY naloxone 4 mg/actuation [place],Non-Aerosol 1 spray INTRANASAL Q3M PRN (Reason: Overdose) Rx Instructions: spray 1 dose into ONE nostril; alternate nostrils w each dose until help arrives Primary Care Provider: Roland Hall Referrals: Roland Hall MD [Primary Care Provider] - Print Language: Malay
[2024-11-05] MEDS: Lidocaine/Epi/Tetracaine 50 ML 1 APPLIC TOPICAL (20:05)
[2024-11-05] MEDS: Lidocaine 1% (20 ml mdv) 20 ML Vial 5 ML INFILT (20:06)
--- NOTE | 2024-11-05 20:13 | RAD_ITS ---
EXAM: XR Chest, 2 Views CLINICAL INDICATION: COUGH TECHNIQUE: Frontal and lateral views of the chest. COMPARISON: No relevant prior studies available. FINDINGS: LUNGS AND PLEURAL SPACES: Unremarkable. No consolidation. No pneumothorax. HEART: Unremarkable. No cardiomegaly. MEDIASTINUM: Unremarkable. Normal mediastinal contour. BONES/JOINTS: Unremarkable. No acute fracture. RAD/Chest PA and Lateral IMPRESSION: No acute cardiopulmonary process. Reading Location: [id number]
[2024-11-05 21:14] VITALS: BP 147/78; PULSE 82; RESP 18; O2SAT 99
[2024-11-05 21:59] VITALS: BP 147/78; PULSE 82; RESP 18; TEMP 37; O2SAT 99
== END 2024-11-05 22:06 | disposition home or self-care (01) ==
PROVIDERS: Emergency Provider Emergency Medicine; PCP Family Medicine; Referring Provider Emergency Medicine; Visit Provider Emergency Medicine
DX: S61.211A Laceration without foreign body of left index finger without damage to nail, initial encounter (principal); F31.9 Bipolar disorder, unspecified; J44.9 Chronic obstructive pulmonary disease, unspecified; Z23 Encounter for immunization; X58.XXXA Exposure to other specified factors, initial encounter; E78.5 Hyperlipidemia, unspecified; K58.9 Irritable bowel syndrome, unspecified; F17.210 Nicotine dependence, cigarettes, uncomplicated; Z79.899 Other long term (current) drug therapy
CPT/HCPCS: 12001; 71046; 90715; 99283; A4216